=== PATIENT | female | born 1965 | race Caucasian/White ===

== ENCOUNTER → 2016-12-09 | Outpatient (CLI) | payer BC ==
[~2016-12-09] MED LIST: CIPR1TAB11 PO
[2016-12-09 15:07] LABS: URINE APPEARANCE CLEAR (CLEAR); URINE BILIRUBIN NEG (NEG); URINE COLOR YELLOW; URINE NITRITE NEG (NEG); URINE PH 6.5 (4.5-7.5); URINE SPECIFIC GRAVITY 1.012 (1.000-1.030); UROBILINOGEN NEG (NEG)
[2016-12-09 15:09] LABS: MANUAL MICROSCOPIC REQUIRED? NO; REVIEW REQ? NO
== END | disposition home or self-care (01) ==
LOC: C.LABSPEC 13:43
PROVIDERS: ATTEND Obstetrics & Gynecology
DX: R39.15 Urgency of urination (principal)

== ENCOUNTER → 2017-04-26 | Outpatient (CLI) | payer BC ==
--- NOTE | 2017-04-27 14:07 | MAMMOGRAPHY REPORT ---
BILATERAL DIGITAL DIAGNOSTIC MAMMOGRAM TOMOSYNTHESIS WITH CAD AND TARGETED RIGHT ULTRASOUND: 7 CLINICAL HISTORY: 52-year-old woman presented for screening mammography but also had a new symptom of right-sided clear nipple discharge. Multiple episodes occurring over multiple months. No palpable lumps, skin erythema or focal pain. TECHNIQUE: Bilateral breast tomosynthesis in addition to standard 2D mammography was performed. Spot magnification right CC and ML views were performed in the anterior subareolar breast to evaluate for the nipple discharge. Current study was also evaluated with a Computer Aided Detection (CAD) system . COMPARISON: Comparison is made to exams dated: 04/15/2015 mammogram, 04/20/2016 mammogram, 02/06/2014 ma mmogram, 12/26/2012 mammogram, 11/18/2011 mammogram, and 11/17/2010 mammogram - [facility]. BREAST COMPOSITION: The tissue of both breasts is almost entirely fatty. FINDINGS: There are grouped benign-appearing calcifications and benign oil cysts in the anterior supe rior left breast. No other suspicious mass, architectural distortion or cluster of microcalcification s is seen. The spot magnification views of the right anterior breast failed to demonstrate any new suspicious mi crocalcifications or obvious new mass. Further evaluation with ultrasound was performed. Targeted ultrasound was performed in the retroareolar and periareolar right breast. In the approxima te 6:00 through retroareolar and 1:00 axis, there is an oval isoechoic mass within a mildly ectatic d uct. The hypoechoic to isoechoic mass measures approximately 8.2 x 2.2 x 5.0 mm. This could explain the patient's nipple discharge and this could represent an intraductal mass such as a papilloma or D CIS. It could also represent intraductal debris. Definitive characterization with an ultrasound-mehran ded core needle biopsy is recommended. IMPRESSION: ACR BI-RADS CATEGORY 4: SUSPICIOUS, TARGETED ULTRASOUND ACR BI-RADS CATEGORY 4: SUSPICIO US 1. Ultrasound guided core biopsy is recommended for a possible intraductal mass measuring 8 x 2 mm i n the 6:00 periareolar/subareolar right breast, which may explain the patient's symptom of right-side d nipple discharge. 2. Otherwise stable mammographic appearance of the breasts, without mammographic evidence of maligna ncy. These results and recommendations were discussed with the patient at the time of the exam. She would like to discuss these findings and her options with her provider prior to making a follow-up appoint ment. Approximately 10% of breast cancers are not detected with mammography. A negative mammographic report should not delay biopsy if a clinically suggestive mass is present. Nelida Salazar M.D. ay/:04/26/2017 15:14:43 Administrative Supervisor: Selin Shelley, [facility] letter sent: Abnormal 4/5 BI-RADS Code: ACR BI-RADS Category 4: Suspicious Ultrasound BI-RADS: ACR BI-RADS Category 4: Suspici ous
== END | disposition home or self-care (01) ==
LOC: C.MAMM 13:58
PROVIDERS: ATTEND Obstetrics & Gynecology
DX: N64.4 Mastodynia (principal); N64.52 Nipple discharge

== ENCOUNTER → 2017-05-16 | Outpatient (CLI) | payer BC ==
--- NOTE | 2017-05-16 12:04 | Discharge Instructions ---
Discharge Instructions Procedure Procedure Date: May 16, 2017. Reason for visit: Right Breast Mass. Discharge Discharge Date: May 16, 2017. Discharge Diagnosis: post right breast ultrasound guided core biopsy Instructions Activity Recommendations: Additional Limitations (see below) Return to School/Work: no limitations Recommended Home Diet: No Limitations Provider Instructions: ACTIVITY RECOMMENDATIONS: * No lifting, pushing, pulling or exercising the affected side for three days. RETURN TO SCHOOL/WORK: * You may return to work/school after the procedure, but do not perform any strenuous activities for 24 to 48 hours. MEDICATIONS: * Tylenol (two 325 mg) every four to six hours if needed for mild pain (if not allergic to Tylenol). DIET: * Resume previous diet. SPECIAL CARE INSTRUCTIONS: * Keep biopsy site dry for 24 hours. May shower after 24 hours, but do not soak (bathe) incision. * May remove Tegaderm (plastic patch) tomorrow AFTER showering. * Leave the steri-strips on for one week. Allow the steri-strips to fall off by themselves. If not off after one week, you may remove them. You may place a Bandaid crosswise over the strips, if desired. * Apply ice 10 minutes on and 10 minutes off as needed. * Wear a bra at bedtime to sleep more comfortably for 2-3 days. * Your referring physician should have the results after approximately 5 to 7 business days. * Call for unusual bleeding, fever, drainage, etc or if you have any questions call [phone] during normal business hours or after hours call Dr Salazar, . FOLLOW UP VISIT: Follow-up with Referring Physician as scheduled. Allergies Coded Allergies: Nickel (Unverified Allergy, Unknown, BLISTERLIKE RASH FROM JEWELRY, ) Sulfa Antibiotics (Unverified Allergy, Unknown, FULL BODY RASH, 03/04/16) Tu Small Recommendations: Call your doctor if: * Temperature above 101 degrees * Pain not relieved by pain medicine ordered * There is increased drainage or redness from any incision * You have any unanswered questions or concerns. Your Doctors Instructions noted above were prepared by provider Nelida Salazar. Patient Signature Section: Patient Instructions Signature Page Reba Kayy Patient (or Guardian) Signature/Date: I have read and understand the instructions given to me by my caregivers. Caregiver/RN/Doctor Signature/Date: The above-named patient and/or guardian has received patient instructions on this date. + Original Patient Signature Page (only) stays with chart. Please make copy for patient.
--- NOTE | 2017-05-16 12:38 | MAMMOGRAPHY REPORT ---
UNILATERAL RIGHT DIGITAL DIAGNOSTIC MAMMOGRAM TOMOSYNTHESIS: 05/16/2017 CLINICAL HISTORY: Status post ultrasound guided core biopsy of a possible intraductal mass in the 6:0 0 retroareolar right breast. Patient has a clinical history of right-sided nipple discharge. Please refer to the report from right breast ultrasound guided core biopsy performed at the same time for full detail. IMPRESSION: POST PROCEDURE IMAGING FOR MARKER PLACEMENT Please refer to the report from right breast ultrasound guided core biopsy performed at the same time for full detail. Approximately 10% of breast cancers are not detected with mammography. A negative mammographic report should not delay biopsy if a clinically suggestive mass is present. Nelida Salazar M.D. ay/:05/16/2017 12:06:43 Mapping Pilot: Selin Shelley, [facility] BI-RADS Code: Post Procedure Imaging For Marker Placement
--- NOTE | 2017-05-16 16:43 | MAMMOGRAPHY REPORT ---
THIS REPORT HAS BEEN AMENDED. ULTRASOUND GUIDED BIOPSY RIGHT BREAST: 05/16/2017 CLINICAL HISTORY: Possible intraductal mass in the 6:00 retroareolar right breast. Patient presents for ultrasound-guided core biopsy. Patient has a clinical history of right-sided nipple discharge. COMPARISON: Comparison is made to exams dated: 04/26/2017 ultrasound, 04/26/2017 mammogram, 04/20/2016 mammogram, 04/15/2015 mammogram, 02/06/2014 mammogram, and 12/26/2012 mammogram - [facility] [address] [facility]. PATIENT CONSENT: The procedure, risks and benefits were discussed with the patient and informed conse nt was obtained both verbally and in writing. Specific risks to this procedure include: bleeding, in fection, puncture of adjacent structure, nontarget biopsy, sampling error, pain, metal allergy and me dication reaction. PROCEDURE DESCRIPTION: A time out was performed and the right breast was agreed as the site of biopsy . The skin was prepped and draped in the usual sterile fashion. The possible intraductal mass in the 6:00 retroareolar right breast was chosen as the target for biopsy. Subcutaneous and intraparenchymal 1% buffered lidocaine, without epinephrine, was administered as local anesthesia. A skin incision wa s made. Through the incision, 4 samples were taken with a 14 gauge Achieve biopsy device. A ribbon s haped metallic marker was placed at the biopsy site. Hemostasis was achieved after manual compression . The patient tolerated the procedure well and there was no immediate complication. The samples were sent to the pathology department in an appropriately labeled container. Postprocedure right CC and ML tomosynthesis images were obtained. There is a new ribbon-shaped metal lic biopsy marker in the subareolar/6:00 retroareolar right breast, at the site of the biopsied intra ductal mass. No significant postbiopsy hematoma is identified. IMPRESSION: ULTRASOUND GUIDED BIOPSY Status post ultrasound guided core biopsy of a possible intraductal mass in the 6:00 retroareolar rig ht breast, with ribbon-shaped biopsy marker clip placed at the site. The patient will receive notification of the biopsy results from her referring physician. Nelida Salazar M.D. ay/:05/16/2017 14:11:12 Treasury Manager: Selin Shelley, [facility] AMENDMENT: 05/18/2017 Nelida Salazar M.D. 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 The pathology results are concordant with the imaging appearance. This papilloma may explain the pat ient's right nipple discharge and therefore surgical consultation for possible excision is boone guadalupe
== END | disposition home or self-care (01) ==
LOC: C.MAMM 11:06
PROVIDERS: ATTEND Obstetrics & Gynecology
DX: N63 Unspecified lump in breast (principal); D24.1 Benign neoplasm of right breast

== ENCOUNTER → 2017-11-20 | Outpatient (CLI) | payer OTHER ==
--- NOTE | 2017-11-20 15:18 | MAMMOGRAPHY REPORT ---
UNILATERAL RIGHT DIGITAL DIAGNOSTIC MAMMOGRAM TOMOSYNTHESIS WITH CAD: 11/20/2017 CLINICAL HISTORY: 52-year-old woman with a personal history of right breast papilloma, symptomatic wi th nipple discharge status post ultrasound-guided core biopsy and subsequent excisional biopsy. Path ology from the excisional biopsy in the right subareolar breast yielded: "An intraductal papilloma, 0 .6 cm, biopsy site reaction. The papilloma appears to be completely excised", based in the microscop ic description. TECHNIQUE: Right breast tomosynthesis in addition to standard 2D mammography was performed. Current s nabeel was also evaluated with a Computer Aided Detection (CAD) system. COMPARISON: Comparison is made to exams dated: 05/16/2017 mammogram, 04/26/2017 ultrasound, 04/26/2017 m ammogram, 04/20/2016 mammogram, 04/15/2015 mammogram, and 02/06/2014 mammogram - [facility]. BREAST COMPOSITION: There are scattered areas of fibroglandular density in the right breast. FINDINGS: A biopsy marker clip is no longer identified in the subareolar right breast, which had been excised at the time of papilloma excision. (The patient reports she is no longer experiencing nippl e discharge.) There is stable nodular asymmetry in the lateral, middle one third of the right breast on the cc view, which appears similar dating back to at least 2007, therefore considered benign. No new suspicious mass, asymmetry, architectural distortion or suspicious microcalcifications identifie d. No focal skin thickening appreciated. IMPRESSION: ACR BI-RADS CATEGORY 2: BENIGN Expected post surgical changes in the right breast from a subareolar papilloma excision. There is no mammographic evidence of malignancy. Recommend return to annual screening mammography schedule, due in April 2018. These results and recommendations were discussed with the patient at the time of the exam. Approximately 10% of breast cancers are not detected with mammography. A negative mammographic report should not delay biopsy if a clinically suggestive mass is present. Nelida Salazar M.D. ay/:11/20/2017 10:03:43 Coater Associate: Caity Davis RT(R)(M), [facility] letter sent: Normal 1/2 BI-RADS Code: ACR BI-RADS Category 2: Benign
== END | disposition home or self-care (01) ==
LOC: C.MAMM 08:59
PROVIDERS: ATTEND Surgery
DX: D24.1 Benign neoplasm of right breast (principal); Z98.890 Other specified postprocedural states

== ENCOUNTER → 2018-04-10 | Outpatient (CLI) | payer OTHER ==
--- NOTE | 2018-04-10 10:06 | DIAGNOSTIC IMAGING REPORT ---
L SHOULDER MIN 2 VIEWS CLINICAL HISTORY: LEFT HUMERAL FX fracture COMPARISON: 03/13/2018 DISCUSSION: Potential early interval healing of a comminuted fracture left humeral head and neck. No change in bony alignment. Developing callus summation. There is no evidence for soft tissue swelling. IMPRESSION: Comminuted fracture left humeral head and neck unchanged in configuration. Potential partial interval healing. The above report was generated using voice recognition software. It may contain grammatical, syntax or spelling errors. Electronically signed by: Florencio Miner M.D. 04/10/2018 10:04 AM Dictated Date/Time: 04/10/2018 10:03 AM
== END | disposition home or self-care (01) ==
LOC: C.RDSM 10:00
PROVIDERS: ATTEND Family Medicine
DX: S42.292A Other displaced fracture of upper end of left humerus, initial encounter for closed fracture (principal); X58.XXXA Exposure to other specified factors, initial encounter

== ENCOUNTER 2019-01-16 08:18 | Inpatient (IN) ==
--- NOTE | 2019-01-07 15:54 | PAT Medication Instructions ---
Medication Instructions Date of Service January 07, 2019 Home Medications celecoxib [Celebrex] 200 mg PO BID magnesium sulfate 300 mg PO QAM mirabegron [Myrbetriq] 25 mg PO QAM tramadol 50 mg PO TID PRN ASK your surgeon for instructions celecoxib [Celebrex] 200 mg PO BID DO NOT take the morning of surgery magnesium sulfate 300 mg PO QAM Take morning of surgery With a small sip of water, OTHERWISE NOTHING TO EAT OR DRINK AFTER MIDNIGHT: mirabegron [Myrbetriq] 25 mg PO QAM tramadol 50 mg PO TID PRN (okay to take up to 4 hours prior to surgery if needed) Take evening before surgery tramadol 50 mg PO TID PRN (if needed) Other Notes If you have any questions please call us at [phone] or [phone] or [phone] or [phone]
--- NOTE | 2019-01-08 12:17 | Anesthesiology Consultation ---
Date of Service January 08, 2019 Assessment & Plan (1) Encounter for pre-operative examination: Chart Review Chart Review: Acceptable Risk for Surgery and Patient seen in Pre Admission Testing Teaching & Discussion Pre-Anesthesia Teaching/Discussion Notes: Instructed NPO after midnight before surgery,except medications with 15 cc of water. Medication instructions provided according to the PAT guidelines. History Surgery Operation Date: 01/16/19 07:15 Proposed Procedures p Left Total Hip Replacement - Kraig Schwartz MD Height/Weight Height: 5 ft 11 in Weight: 131.6 kg Allergies Allergy/AdvReac Type Severity Reaction Status Date / Time nickel Allergy Mild BLISTERLIKE Verified 01/07/19 11:36 RASH FROM JEWELRY Sulfa (Sulfonamide Allergy Mild FULL BODY Verified 01/07/19 11:36 Antibiotics) RASH Additional Notes: Surgeon/OR made aware of nickel allergy* Medications Home Medications Medication Instructions Recorded Confirmed Last Taken celecoxib [Celebrex] 200 mg PO BID 01/07/19 01/07/19 Unknown magnesium sulfate 300 mg PO QAM 01/07/19 01/07/19 Unknown mirabegron [Myrbetriq] 25 mg PO QAM 01/07/19 01/07/19 Unknown tramadol 50 mg PO TID PRN 01/07/19 01/07/19 Unknown Past Medical History Medical History Chronic back pain Frequency of urination Migraine H/O Morbid obesity Osteoarthritis Sciatica LLE RADICULOPATHY Exercise / Class Metabolic Activity III < 4 Walking/Shop/Light housework Past Family History Family History Grandfather (Maternal) Family hx of colon cancer Past Surgical History Surgical History H/O hysterectomy with oophorectomy History of colonoscopy History of tonsillectomy History of tooth extraction Past Anesthesia History No Hx of Anesthesia Complications and No Family Hx of Anesthesia Complications History of PONV No Hx of PONV, No Family Hx of PONV, No Hx of Motion Sickness and Hx of Motion Sickness (OCCASIONAL) Social History Smoking Status: Never smoker Do You Dip or Chew Tobacco: No Hx Alcohol Use: Yes Alcohol type: wine alcohol intake frequency: a few times a month Hx Substance Use: No substance use type: does not use Review of Systems Patient denies chest pain, shortness of breath, cough, wheezing, palpitations. Physical Exam Vital Signs VITALS BP 125/82 P 81 TEMP 98.1 SP02 95%RA RESP 18 PHYSICAL Full neck and c-spine range of motion. Full TMJ range of motion. TMD 3.5 finger breaths Mallampati Score 3 Dentition: intact Lungs: clear throughout to auscultation Cardiac: regular rate and rhythm, I/ systolic murmur Spine: normal Carotid arteries: negative bruit Extremities: no edema Testing Electrocardiogram Date: 01/08/19 Findings: + NSR @ (72) Chest X-Ray Date: 01/08/19 Findings: + NAD Laboratory Results 01/08/19 12:32 01/08/19 12:32 Blood Type A Positive 01/08/19 12:32 Antibody Screen NEGATIVE 01/08/19 12:32 PT 10.5 Seconds (9.0-12.0) 01/08/19 12:32 INR 1.0 (0.9-1.1) 01/08/19 12:32 APTT 28.1 Seconds (21.0-31.0) 01/08/19 12:32
--- NOTE | 2019-01-08 13:07 | XRay Report ---
XR chest Pre-admission PA/Lat HISTORY: Preop. COMPARISON: None. FINDINGS: The lungs are clear. Cardiac silhouette is normal in size. No pleural effusions. No pneumot horax. IMPRESSION: No acute process. Electronically signed by: Valdemar Velásquez M.D. 01/08/2019 1:05 PM
[2019-01-08 14:16] LABS: Basophils # (auto) 0.04 K/uL (0-0.2); Basophils % (auto) 0.7 %; Eosinophils # (auto) 0.19 K/uL (0-0.5); Eosinophils % (auto) 3.1 %; Hematocrit (blood only) 40.6 % (37-47); Hemoglobin 13.8 g/dL (12.0-16.0); Immature Granulocytes # (auto) 0.01 K/uL (0.00-0.02); Immature Granulocytes % (auto) 0.2 %; Lymphocytes # (auto) 1.82 K/uL (1.2-3.4); Lymphocytes % (auto) 29.6 %; Mean Corpuscular Volume 83.5 fL (80-100); Mean Platelet Volume 10.2 fL (7.4-10.4); Monocytes # (auto) 0.37 K/uL (0.11-0.59); Neutrophils # (auto) 3.71 K/uL (1.4-6.5); Neutrophils % (auto) 60.4 %; Platelet Count 253 K/uL (130-400); RDW Coefficient of Variation 13.3 % (11.5-14.5); RDW Standard Deviation 39.7 fL (36.4-46.3); Red Blood Count 4.86 M/uL (4.2-5.4); White Blood Count 6.14 K/uL (4.8-10.8)
[2019-01-08 14:28] LABS: Partial Thromboplastin Time 28.1 Seconds (21.0-31.0); Prothrombin Time 10.5 Seconds (9.0-12.0)
[2019-01-08 14:56] LABS: BUN Creatinine Ratio 26.6 (10-20); C Reactive Protein 0.99 mg/dl (0-0.29); Calcium 9.4 mg/dl (8.5-10.1); Est GFR (African American) 114.9; Est GFR (Non-African American) 99.2; Potassium 4.2 mmol/L (3.5-5.1)
--- NOTE | 2019-01-09 14:36 | History and Physical Report ---
DATE OF ADMISSION: 01/16/2019 CHIEF COMPLAINT: Left hip pain. HISTORY OF PRESENT ILLNESS: This is a 53-year-old female who presents for surgical treatment of her left hip. She has about a year history of markedly increased left hip pain and discomfort that has gradually just gotten worse particularly over the past 6-9 months. No injury. [facility] quite some time, which has not been helping. [place] was [place] [facility] were [place] there. She has seen Dr. Verma as well as Dr. Miller with various injections. She did eventually see Dr. Zepeda. I would recommend she lose some weight. She has tried to do this, but having difficulty due to the fact that she is having trouble ambulating. She uses a cane to get around. She describes groin and thigh pain and buttock pain. She did have an intraarticular injection, which helped her for about 2 days. She has lost 35 pounds over the past 5 months. She continues to be bothered by disabling hip pain. She has nighttime pain. She had to quit her job due to her limited mobility. She now like to proceed with definitive treatment. PAST MEDICAL HISTORY: 1. Arthritis. 2. Obesity with BMI of 41 and a 35-pound weight loss for past several months. PAST SURGICAL HISTORY: Include: 1. Hysterectomy. 2. Tonsillectomy. 3. Biopsy. ALLERGIES: SULFA. ALSO REPORTS SOME ADVERSE REACTION TO NICKEL. CURRENT MEDICINES: Include: 1. Celebrex. 2. Tyrosine for metabolic weight loss. 3. Tramadol. SOCIAL HISTORY: A 53-year-old female. She is . Does not smoke. FAMILY HISTORY: Noncontributory. REVIEW OF HISTORY: Negative for diabetes, neurological problems, vascular problems, bleeding disorders. Denies any chest pain, no shortness of breath. No history of DVT or PE. No known bleeding problems. PHYSICAL EXAMINATION: GENERAL: Reveals a pleasant, middle-aged female, looks to be in reasonably good health. HEENT: Benign. NECK: Supple, no lymphadenopathy. LUNGS: Clear to auscultation. HEART: Has regular rate and rhythm. ABDOMEN: Soft, nontender, nondistended. EXTREMITIES: Grossly neurovascularly intact except as follows. Examination of left hip and leg reveals the patient walks with a markedly antalgic gait. She comes in using a cane. She is about 0.5 cm short on the left side compared to right. She has marked pain with any type of hip motion. She can internally rotate to neutral at best. External rotation at 20 degrees. Negative straight leg raise. X-RAYS: X-ray of left hip reviewed. She has advanced left hip DJD. She has got complete loss of her joint space with flattening of the femoral head and cystic change on both sides of the joint. She does have some subluxation of her femoral head and the acetabulum as well. ASSESSMENT: A 53-year-old female with a 1 year history of increasing left hip pain and discomfort consistent with advanced hip arthritis. She undoubtably has got some back disease, but I do not believe her hip is most disabling component of her pain pattern. PLAN: We talked about treatment. She would like to have her left hip fixed. We will take her to the Operating Room and do a left total hip replacement. The risks and benefits of this procedure were explained to the patient including but not limited to DVT, PE, , infection, neurological injury, vascular injury, bleeding problem, pain, limited range of motion, stiffness, failure to relieve symptoms, incomplete relief of symptoms, need for further surgery in the future, fracture, leg length inequality, nerve palsy, need for revision surgery. The patient understands and desires to proceed. Informed consent was obtained. I did explain to her with her increased size and BMI, she is at increased risk of infection. She is aware of that. She has tried to lose some weight and had some success over the past several months. As far as discharge plans, she is planning to be discharged to home using [facility]. DUE TO THIS NICKEL ALLERGY, we will make sure we use a titanium stem with a ceramic or articular ball. RITAD
[~2019-01-16 08:18] MED LIST changes: +ACETAMINOPHEN 500 MG TAB PO SCH; +BUPIVACAINE 0.5 % 5 MG/1 ML PF 10ML VIAL ONE; +CEFAZOLIN 3000MG 65 ML IV SCH; -CIPR1TAB11 PO; +FAMOTIDINE 20 MG TAB PO SCH; +GABAPENTIN 300 MG x 2 PO SCH; +LR 500ML BOLUS, THEN 15ML/HR IV SCH; +LR 60ML/HR IV SCH; +METOCLOPRAMIDE HCL 10 MG TABLET PO SCH; +SCOPOLAMINE 1.5 MG TDSY TD SCH; +TRANEXAMIC ACID 1,000 MG **IV Pre-op IV SCH
--- OUTSIDE RECORDS SUMMARY | 2019-01-16 08:23 | External Medical Summary | Continuity of Care Document ---
:1965 Author Name Nandini Stuart, Provider Address Unavailable Unavailable , Care Team Providers Name Role Phone Raissa Edmonds PA-C Unavailable [email or web address] Unavailable Unavailable Unavailable Unavailable Unavailable Problems Obesity (278.00) (E66.9) Osteoarthritis (715.90) (M19.90) Chronic low back pain (724.2) (M54.5) Back pain with sciatica (724.3) (M54.9) Non-smoker (V49.89) (Z78.9) Cough (786.2) (R05) Laryngopharyngeal reflux (478.79) (K21.9) Laryngeal candidiasis (112.89) (B37.89) Throat pain (784.1) (R07.0) Trouble swallowing (787.20) (R13.10) Overactive bladder (596.51) (N32.81) Skin symptoms (782.9) (R23.9) Plantar warts (078.12) (B07.0) Palpitations (785.1) (R00.2) Malaise (780.79) (R53.81) Generalized Dermatitis Due To Drugs And Medicines (693.0) Encounter for routine gynecological examination (V72.31) (Z0 1.419) Gilda infection (112.9) (B37.9) Allergies and Adverse Reactions predniSONE TABS (Allergy) Status: Denied Sulfa Drugs (Allergy) Reaction: Hives Medications traMADol HCl - 50 MG Oral Tablet; TAKE 1 TABLET 3 time s daily PRSAY Syed Start: 15-Aug-2018 Quantity: 30 Refills: 0 Celecoxib 200 MG Oral Capsule; Take 1 capsule twice daily Sade Avery Start: 20-Dec-2018 Quantity: 60 Refills: 3 Myrbetriq 25 MG Oral Tablet Extended Release 24 Hour; Take 1 tablet daily Sade Harper Start: 18-Dec-2018 Quantity: 30 Refills: 1 Procedures History of Hysterectomy Status: Complete d History of Tonsillectomy Status: Complet ed History of Salpingectomy Unilateral Left Side Status: Completed History of breast biopsy core needle Sta tus: Completed History of breast biopsy excisional Stat us: Completed Immunizations Immunizations not documented Family History Father Family history of Lung Cancer (V16.1) Status: Active Family history of deafness or hearing loss (V19.2) (Z82.2) S tatus: Active Family history of asthma (V17.5) (Z82.5) Status: Active Mother Family history of Hypertension (V17.49) Status: Active Family history of Sinus disorder (473.9) (J34.9) Status: Act meryl Grandmother Family history of cardiac disorder (V17.49) (Z82.49) Status: Active aunt Family history of cerebrovascular accident (CVA) (V17.1) (Z8 2.3) Status: Active Plan of Treatment Planned Encounters Appointment; Ct Harper M.D. Start: 19-Mar-2019 15:45 Request Planned Observations Planned Goals not documented Results X-Ray Chest Preadm Testing Laboratory: [facility] Diagnostic (Pending) Imaging [address] [facility] 08-Jan-2019 13:04 X-Ray Chest Preadm Testing (CXRPRE) [place], [place] [phone] XRay Report Patient: ZECHARIAH HERNANDEZ Admit Date: MR#: [id number] Address1: [address] [place] [address] Acct ID:[id number] Address2: Date: 1965 [facility] Zip: [place] [address] Age: 53 Location: ASU Sex: F Room/Bed: Att Phy: Kraig Schwartz MD Diagnosis: LEF T HIP DEGENERATIVE JOINT DISEASE Carina Phy: Ct Harper MD Service Date: 0 01/08/19 Fam Phy: Interpreting Phy: Valdemar noel MD Admit Phy: Ordering Phy: Kraig Schwartz MD cc: XR chest Pre-admission PA/Lat HISTORY: Preop. COMPARISON: None. FINDINGS: The lungs are clear. Cardiac silhouette is normal in size. No pleural effusions. No pneumothorax. IMPRESSION: No acute process. Electronically signed by: Valdemar Velásquez M.D. 01/08/2019 1:05 PM Dictated: 01/08/19 1304 Transcribed: 01/08/19 1304 CBC With DIFF (Pending) Laboratory: [facility] Laboratory [address] [facility] [address] tel: 08-Jan-2019 12:32 WBC 6.14 K/uL Range: 4.8-10.8 K/u L RBC 4.86 {M/uL} Range: 4.2-5.4 M/uL HEMOGLOBIN 13.8 g/dL Range: 12.0-16.0 g /dL HEMATOCRIT 40.6 % Range: 37-47 % MCV 83.5 fL Range: 80-100 fL MCH 28.4 pg Range: 25-34 pg MEAN CORPUSCULAR HGB CONC Range: 32-36 g/dL 34.0 g/dL RED CELL DISTRIBUTION WIDTH Range: 36.4 -46.3 fL SD 39.7 fL RED CELL DISTRIBUTION WIDTH Range: 11.5 -14.5 % CV 13.3 % PLATELET COUNT 253 K/uL Range: 130-400 K/uL MEAN PLATELET VOLUME 10.2 fL Range: 7.4 -10.4 fL NEUT % 60.4 % Range: % LYMPH % 29.6 % Range: % MONO % 6.0 % Range: % EOS % 3.1 % Range: % BASO % 0.7 % Range: % IG% 0.2 % Range: % Comments: IG paramet er reflects the combination of Metas, Myelos andPromyelocytes. Neutrophils (Auto) 3.71 K/uL Range: 1. 4-6.5 K/uL LYMPH ABS # 1.82 K/uL Range: 1.2-3.4 K/ uL MONO ABS # 0.37 K/uL Range: 0.11-0.59 K /uL EOS ABS # 0.19 K/uL Range: 0-0.5 K/uL BASO ABS # 0.04 K/uL Range: 0-0.2 K/uL IG# 0.01 K/uL Range: 0.00-0.02 K/ uL Erythrocyte Sedimentation Laboratory: [facility] Laboratory Rate - ESR (Pending) [address] [place] [address] tel: 08-Jan-2019 12:32 ERYTHROCYTE SEDIMENTATION Range: 0-21 m m/hr RATE 16 {mm/hr} PT/INR (Pending) Laboratory: [facility] Laboratory [address] [place] [address] tel: 08-Jan-2019 12:32 Prothrombin Time 10.5 Range: 9.0-12.0 S econds {Seconds} INR 1.0 Range: 0.9-1.1 PTT (Pending) Laboratory: [facility] Laboratory [address] [place] [address] tel: 08-Jan-2019 12:32 PTT PATIENT 28.1 {Seconds} Range: 21.0- 31.0 Seconds Comments: Therapeuti c APTT range is 46.0 - 66.4 seconds PARTIAL THROMBOPLASTIN RATIO 1.0 Basic Metabolic Panel Laboratory: [facility] Laboratory (Pending) [address] [place] [address] tel: 08-Jan-2019 12:32 SODIUM 136 mmol/L Range: 136-145 mmol /L POTASSIUM 4.2 mmol/L Range: 3.5-5.1 mmo l/L CHLORIDE 104 mmol/L Range: 98-107 mmol/ L CARBON DIOXIDE 29 mmol/L Range: 21-32 m mol/L ANION GAP 3.0 Range: 3-11 BLOOD UREA NITROGEN 18 mg/dl Range: 7-1 8 mg/dl CREATININE 0.68 mg/dl Range: 0.6-1.2 mg /dl Estimated Creatinine Range: ml/min Clearance 142.0 ml/min Comments: Est. Cr eatinine Clearance (Mod Cockcroft- Gault) for pharmacydosing purposes. Estimated GFR ( Comments: Units: ml/min per Bhutanese) 114.9 1.73 meters squaredT he estimated GFR (CKD-E PI equation) has not be en validatedfor inpatie nt settings and may not be an accurate reflectiono f renal function in critical ly ill patients or those withrapidly changing renal function (e.g. KIM). Estimated GFR (Non- Comments: Uni ts: ml/min per Bhutanese) 99.2 1.73 meters squaredT he estimated GFR (CKD-E PI equation) has not be en validatedfor inpatie nt settings and may not be an accurate reflectiono f renal function in critical ly ill patients or those withrapidly changing renal function (e.g. KIM). BUN/CREATININE RATIO 26.6 Range: 10-20 (above high threshold) GLUCOSE 90 mg/dl Range: 70-99 mg/dl CALCIUM 9.4 mg/dl Range: 8.5-10.1 mg/ dl C-Reactive Protein (Pending) Laboratory: [facility] Laboratory [address] [place] [place] [address] tel: 08-Jan-2019 12:32 C-REACTIVE PROTEIN 0.99 mg/dl Range: 0- 0.29 mg/dl (above high threshold) Vital Signs 14-Jan-2019 13:08 Systolic 132 mm[Hg] Diastolic 78 mm[Hg] BMI Calculated 42.53 kg/m2 Weight 288 lb Height 69 in BSA Calculated 2.41 m2 08-Jan-2019 16:03 Systolic 134 mm[Hg] Comments: Position: Sitting Diastolic 80 mm[Hg] Comments: Position: Sitting BMI Calculated 43 kg/m2 Weight 291.1875 lb BSA Calculated 2.42 m2 Heart Rate 80 /min 18-Dec-2018 15:04 Systolic 144 mm[Hg] Comments: Position: Standing Diastolic 80 mm[Hg] Comments: Position: Standing BMI Calculated 43.94 kg/m2 Weight 297.5625 lb BSA Calculated 2.45 m2 Heart Rate 88 /min 18-Dec-2018 15:03 Systolic 150 mm[Hg] Comments: Position: Sitting Diastolic 80 mm[Hg] Comments: Position: Sitting Encounters Appointment; Jina Menchaca DO 14-Jan-2019 13:15 Encounter Diagnosis: Problem not documented Appointment; Ct Harper M.D. 08-Jan-2019 15:30 Encounter Diagnosis: Problem not documented Appointment; Ct Harper M.D. 18-Dec-2018 14:45 Encounter Diagnosis: Problem not documented Appointment; Raissa Edmonds PA-C 20-Nov-2018 10:00 Encounter Diagnosis: Problem not documented Appointment; Raissa Edmonds PA-C 21-Sep-2018 9:00 Encounter Diagnosis: Problem not documented Appointment; Raissa Edmonds PA-C 08-Aug-2018 13:00 Encounter Diagnosis: Problem not documented Appointment; Vero Puga M.D. 15-Dec-2017 8:40 Encounter Diagnosis: Problem not documented Appointment; Nelida Nettles PA-C 07-Jul-2017 14:15 Encounter Diagnosis: Problem not documented Appointment; Nohemi Zarate PA-C 10-Feb-2017 13:40 Encounter Diagnosis: Problem not documented Appointment; Nohemi Zarate PA-C 26-Jan-2017 9:40 Encounter Diagnosis: Problem not documented Appointment; Ct Harper M.D. 19-Mar-2019 15:45 Encounter Diagnosis: Problem not documented
--- NOTE | 2019-01-16 08:54 | History & Physical Bridge Note ---
Date of Service January 16, 2019 History & Physical Bridge Note I have examined the patient, reviewed the History & Physical and in the interval since the performance of the History & Physical I have noted the following changes of clinical significance: no changes noted
[2019-01-16] MEDS ORDERED: PROPOFOL IV EMULSION 10 MG/ML 20 ML VIAL IV ONE ×2 (09:34→11:15)
[2019-01-16] MEDS ORDERED: MIDAZOLAM HCL 1 MG/ML 2ML VIAL ONE ×3 (09:34→12:25)
[2019-01-16] MEDS ORDERED: LIDOCAINE HCL 2% 2 ML VIAL/AMP(20MG/ML) INFIL ONE (09:34)
[2019-01-16] MEDS ORDERED: MoRPHine SULFATE PF 1 MG/ML 10 ML AMP/VIAL ONE (09:35)
[2019-01-16] MEDS ORDERED: NALBUPHINE HCL INJ 10 MG/ML AMP IV PRN (10:29)
[2019-01-16] MEDS ORDERED: NALOXONE HCL 0.4 MG/1 ML VIAL/CARP IV PRN ×2 (10:29→14:16)
[2019-01-16] MEDS ORDERED: MoRPHine SULFATE PF 1 MG/ML 10 ML AMP/VIAL INT SPINAL ONE (10:29)
[2019-01-16] MEDS ORDERED: ONDANSETRON INJ 2 MG/ML 2 ML VIAL IV PRN (10:29)
[2019-01-16] MEDS ORDERED: MEPERIDINE HCL 25 MG/ML CARP IV PRN (10:29)
[2019-01-16] MEDS ORDERED: LACTATED RINGER'S 500 ML IV PRN (10:29)
[2019-01-16] MEDS ORDERED: KETOROLAC 30 MG/ML VIAL IV PRN (10:29)
[2019-01-16] MEDS ORDERED: MoRPHine SULFATE 2 MG/ML CARP IV PRN (10:29)
[2019-01-16] MEDS ORDERED: NALOXONE HCL 0.08 MG in SYRINGE 1.8 ML IV PRN (10:29)
[2019-01-16] MEDS ORDERED: PROMETHAZINE HCL 25 MG in SODIUM CHLORIDE 0.9% 50 ML IV PRN (10:29)
[2019-01-16] MEDS ORDERED: ePHEDrine sulfate 50 MG/ML AMP IV PRN (10:29)
[2019-01-16] MEDS ORDERED: HYDROmorphone INJ 0.5 MG/0.5 ML SYR IV PRN (10:29)
[2019-01-16] MEDS ORDERED: NALOXONE HCL 1 MG in SODIUM CHLORIDE 0.9% 1000ML 1,000 ML IV PRN (10:29)
[2019-01-16] MEDS ORDERED: DiphenhydrAMINE HCL 50 MG/ML VIAL IV PRN (10:29)
[2019-01-16] MEDS ORDERED: DC INTRASPINAL MORPHINE SCH (10:30)
[2019-01-16] MEDS ORDERED: NO NARCOTICS OR SEDATIVES SCH (10:30)
[2019-01-16] MEDS ORDERED: SODIUM CHLORIDE 0.9% 1000ML 1,000 ML IV SCH (10:30)
[2019-01-16] MEDS ORDERED: BACITRACIN INJ 50,000 UNIT VIAL ONE (10:46)
[2019-01-16] MEDS ORDERED: BUPIVACAINE/EPINEPHRINE 0.5% MPF 1:200,000 30 ML VIAL ONE (10:46)
[2019-01-16] MEDS ORDERED: PHENYLEPHRINE 100MCG/ML 5ML SYR ONE (11:40)
--- NOTE | 2019-01-16 12:58 | Post Operative Brief Note ---
Immediate Post Op Note v1 Date of Surgery January 16, 2019 Pre & Post Diagnosis Operation Date: 01/16/19 10:40 Pre-Op Diagnosis: Left Hip Advanced Degenerative Joint Disease Post-Op Diagnosis: Left Hip Advanced Degenerative Joint Disease Procedure Operation Date: 01/16/19 10:40 Actual Procedures p Left Total Hip Arthroplasty,Uncemented(Left) - Kraig Schwartz MD Surgeon Kraig Schwartz MD Assistant Project Engineer Kd, PAC Estimated Blood Loss 400 Findings Consistent with Post-Op Diagnosis Fluids 1700 cc Specimens Left Femoral Head Drains Garrison Catheter (A 16 Micronesian garrison catheter was inserted by GUSTAVO Wadsworth, without difficulty, clear yellow urine obtained, output to be montiored by Anesthesia.) Anesthesia Type Spinal MAC Complications none Disposition Accompanied Patient To Recovery: Yes Disposition: Recovery Room
--- NOTE | 2019-01-16 13:26 | XRay Report ---
XR hip 1V LT w pelvis CLINICAL HISTORY: IN PACU - A/P PELVIS and LATERAL HIP COMPARISON: None. DISCUSSION: Anatomic alignment post total left hip arthroplasty. Good contact between the metallic pr osthetic and underlying bone. Expected soft tissue postoperative change IMPRESSION: Anatomic alignment post total left hip prosthetic The above report was generated using voice recognition software. It may contain grammatical, syntax or spelling errors. Electronically signed by: Florencio Miner M.D. 01/16/2019 1:25 PM
[2019-01-16] MEDS ORDERED: BISACODYL 10 MG SUPP PR PRN (14:16)
[2019-01-16] MEDS ORDERED: MAGNESIUM HYDROXIDE SUSP 30 ML UDC PO PRN (14:16)
--- NOTE | 2019-01-16 14:33 | Anesthesiology Progress Note ---
Date of Service January 16, 2019 Anesthesia Post Procedure Vital Signs Vital Signs: Temp Pulse Pulse Resp BP Pulse Ox 01/16/19 14:26 36.6 C 68 20 104/65 100 01/16/19 13:45 75 14 111/59 L 99 01/16/19 13:30 68 14 117/60 99 01/16/19 13:15 36.4 C L 79 13 122/59 L 95 01/16/19 13:05 79 20 133/59 L 100 01/16/19 12:59 36.2 C L 85 17 122/74 98 01/16/19 08:57 36.9 C 88 18 174/90 H 97 Pain Intensity Left Hip: Pain Intensity: 4 Transfer of Care Handoff Completed per policy Notes Mental Status: alert / awake / arousable and participated in evaluation Patient Amnestic to Procedure: Yes Nausea / Vomiting: adequately controlled Pain: adequately controlled Airway Patency, RR, SpO2: stable & adequate BP & HR: stable & adequate Hydration State: stable & adequate Anesthetic Complications: no major complications apparent
[2019-01-16] MEDS: ACETAMINOPHEN 500 MG TAB PO SCH ×2 (15:22→21:08)
[2019-01-16] MEDS: KETOROLAC 30 MG/ML VIAL IV SCH ×2 (15:22→21:08)
[2019-01-16] MEDS: SODIUM CHLORIDE 0.9% 1000ML 1,000 ML IV SCH ×2 (15:22→23:57)
[2019-01-16] MEDS: CHECK SCOPOLAMINE PATCH PLACEMENT SCH ×2 (15:23→23:51)
--- NOTE | 2019-01-16 16:17 | Progress Note ---
DATE: 01/16/2019 SUBJECTIVE: A 53-year-old female postop from a left total hip replacement. She is doing well. Just starting to have some pain in her leg. No chest pain or shortness of breath. Not feeling dizzy or lightheaded. OBJECTIVE: VITAL SIGNS: Temperature 36.4. Vital signs stable. GENERAL: Physical examination shows a pleasant, middle-aged female. She is sitting up in her bed and talking to her , looks pretty comfortable. LUNGS: Clear to auscultation. HEART: Regular rate and rhythm. ABDOMEN: Soft, nontender, nondistended. EXTREMITIES: Grossly neurovascularly intact except as follows: Examination of the left lower extremity reveals the leg to be well aligned. Leg lengths are equal. Hip appears located. She can dorsiflex and plantarflex her foot appropriately. She is neurologically intact. X-RAYS: X-rays of the left hip from recovery room reviewed. It shows a left uncemented total hip arthroplasty. Components looked to be in good position. No signs of problems. ASSESSMENT: A 53-year-old female postop from a left hip replacement, doing well. Her pain is controlled. Her hip is located. She is neurologically intact. PLAN: 1. DVT prophylaxis including thigh-high TEDs, SCDs, and aspirin twice a day. 2. PT/OT. Weight bear as tolerated. Left total hip protocol. 3. Pain control, doing pretty well with current pain regimen. We have to adjust her meds as the spinal wears off. 4. IV antibiotics x24 hours. 5. Disposition: Plan to discharge to home with some home health once medically stable and recovered.
[2019-01-16] MEDS: ASCORBIC ACID 500 MG TAB PO SCH (18:02)
[2019-01-16] MEDS: FERROUS GLUCONATE 324 MG TAB PO SCH (18:02)
[2019-01-16] MEDS ORDERED: TRANEXAMIC ACID 1,000 MG in 0.9 % SODIUM CHLORIDE 100 ML IV SCH (19:00)
[2019-01-16] MEDS: CEFAZOLIN 2000MG 2,000 MG/15 ML SYR IV SCH (19:39)
[2019-01-16] MEDS: ASPIRIN 81 MG ECTAB PO SCH (21:08)
[2019-01-16] MEDS: DOCUSATE SODIUM 100 MG CAP PO SCH (21:08)
[2019-01-16] MEDS: SENNA 8.6 MG TAB PO SCH (21:08)
--- NOTE | 2019-01-16 22:32 | Operative Report ---
DATE OF OPERATION: 01/16/2019 SURGEON: Kraig Schwartz MD DELIVERY NURSE: GUSTAVO Swenson PREOPERATIVE DIAGNOSIS: Left hip degenerative joint disease. POSTOPERATIVE DIAGNOSIS: Left hip degenerative joint disease. PROCEDURE PERFORMED: Left uncemented ceramic on highly cross-linked polyethylene total hip arthroplasty. COMPLICATIONS: None. ESTIMATED BLOOD LOSS: 400 mL. FLUID REPLACEMENT: 1700 mL crystalloid fluid replacement. ANESTHESIA: Spinal. DRAINS: None. SPECIMENS: Left femoral head sent for pathology. OPERATIVE INDICATIONS: The patient is a 53-year-old female who has had a several year history of increasing left pain and discomfort that has gotten markedly worse over the past year. She has been through extensive conservative treatment including pain clinic as well as spine injections without much relief and progressive pain. X-rays eventually showed markedly progressed left hip arthritis. She elected to proceed with total hip arthroplasty. She is in the point that she was asked to use a cane to get around. OPERATIVE FINDINGS: Operative findings were advanced left hip DJD. She had a very dysplastic acetabulum with a large medial osteophyte and sclerosis and a very deficient superior and posterior wall. She had grade 4 extensive disease. OPERATIVE IMPLANTS: Operative implants consisted of: 1. Biomet G7 size 56 mm acetabular shell. 2. An apex hole eliminator. 3. A 6.5 cancellous acetabular screws, 1 at 35 mm length and 1 at 20 mm length. 4. Highly cross-linked polyethylene liner with a 56 mm outer diameter, 36 mm inner diameter with a vigil placed inferior and posterior. 5. DePuy Corail size 12 KLA femoral stem. 6. The +8.5/36 mm ceramic articular ball. OPERATIVE PROCEDURE: The patient taken to the operating room, identified and placed on the operative table in supine position. All contact areas were appropriately padded. IV antibiotics were provided by the anesthesia team. Spinal anesthetic was implemented in the holding area. Escalona catheter was placed in sterile fashion. The patient was then placed in the right lateral decubitus position. We took extra time positioning her due to her very large size. [facility] hip positioner was used for positioning. All contact areas were meticulously padded. Left hip and leg were then prepped and draped in usual sterile fashion. A posterolateral approach of the left hip was then performed through a curvilinear incision centered over the greater trochanter. Sharp dissection was carried out through the subcutaneous tissue down to the level of the IT band and gluteal fascia. The subcutaneous tissue envelope was quite thick. The IT band and gluteal fascia was incised longitudinally in line with skin incision. The greater trochanteric bursa was excised. The piriformis and external rotators and the posterior capsule were released from the posterior aspect of the hip joint as a single layer. Great care was taken throughout the procedure to protect the sciatic nerve at all times. Hip was internally rotated and dislocated. The femoral neck osteotomy cut was made with the final cut about 12 mm above the lesser trochanter. Femoral head was removed and sent for pathology. The femur was retracted anteriorly. Attention was then drawn to the acetabulum. The acetabular labrum was excised. There was no pulvinar fat. I did find the marking of the acetabulum. I then reamed centrally and then I reamed for position. I began reaming at a 47 and progressed up to 55. A 56 mm Biomet G7 acetabular shell was then placed in about 40 degrees of lateral opening and 20 degrees of anteversion. It did take quite the reaming to do this. It was then fixed with two 6.5 cancellous acetabular screws. A trial liner was placed. Attention was then drawn to the femur. The proximal femur entered with cookie cutter followed by canal finder. I then broached beginning with a size 8 and progressed up to a size 12. We got excellent fit at 12. The calcar reamer was used to smoothen off the calcar. I then trialed the hip. There was quite a bit of laxity due to the medialization of the acetabulum, so I ended placing the +8.5 neck length head. At this point, I had full stability and full extension and external rotation, flexion to 90 degrees, internal rotation to [address] a vigil inferior and posterior to maximize her stability in flexion due to her obesity impingement and due to the soft tissue laxity due to the medialization of the cup. We elected to place these implants. All trial implants were removed. An apex hole eliminator was placed. A highly cross-linked polyethylene liner with a vigil placed inferior and posterior was placed. A DePuy Corail size 12 KLA femoral stem was impacted in position. A +8.5/36 mm ceramic articular ball was placed. Hip was located and once again found to be stable. Attention was then drawn toward closing. The posterior capsule and external rotators were repaired through drill holes in the posterior trochanter with #2 Ti-Cron suture. I did inject locally with 60 mL of 0.5% Marcaine with epinephrine. I irrigated the wound extensively. The IT band and gluteal fascia were then closed with #1 PDS suture in running fashion. The subcutaneous tissue then closed with 3 layers with 2 layers of #2 Vicryl suture in a buried interrupted fashion followed by 2-0 Dexon suture in a subcuticular fashion. The skin was then closed with skin zohaib. Leg was then cleaned, dried and a sterile dressing of Xeroform, 4 x 4's, sterile ABD pad and foam tape was applied. The patient then transferred to the recovery room in stable condition. The patient tolerated the procedure well with no complication. All needle and sponge counts were correct at the end of the operation. I attest to the content of the Intraoperative Record and any orders documented therein. Any exception s are noted below.
[2019-01-17] MEDS: KETOROLAC 30 MG/ML VIAL IV SCH ×4 (03:41→21:22)
[2019-01-17] MEDS: CEFAZOLIN 2000MG 2,000 MG/15 ML SYR IV SCH (03:41)
[2019-01-17] MEDS: ACETAMINOPHEN 500 MG TAB PO SCH ×3 (05:23→21:22)
[2019-01-17 06:14] LABS: Basophils # (auto) 0.03 K/uL (0-0.2); Basophils % (auto) 0.4 %; Eosinophils # (auto) 0.16 K/uL (0-0.5); Eosinophils % (auto) 2.1 %; Hematocrit (blood only) 31.9 % (37-47); Hemoglobin 10.9 g/dL (12.0-16.0); Immature Granulocytes # (auto) 0.01 K/uL (0.00-0.02); Immature Granulocytes % (auto) 0.1 %; Lymphocytes # (auto) 1.16 K/uL (1.2-3.4); Mean Corpuscular Hgb Conc 34.2 g/dL (32-36); Mean Corpuscular Volume 82.2 fL (80-100); Mean Platelet Volume 9.4 fL (7.4-10.4); Monocytes # (auto) 0.58 K/uL (0.11-0.59); Monocytes % (auto) 7.5 %; Neutrophils # (auto) 5.77 K/uL (1.4-6.5); Neutrophils % (auto) 74.9 %; Platelet Count 190 K/uL (130-400); RDW Coefficient of Variation 13.2 % (11.5-14.5); RDW Standard Deviation 39.9 fL (36.4-46.3); Red Blood Count 3.88 M/uL (4.2-5.4); White Blood Count 7.71 K/uL (4.8-10.8)
[2019-01-17 06:56] LABS: BUN Creatinine Ratio 29.3 (10-20); Calcium 8.2 mg/dl (8.5-10.1); Creatinine Clr Calc Pharmacy 188.9 ml/min; Est GFR (African American) 126.3; Potassium 3.8 mmol/L (3.5-5.1)
[2019-01-17] MEDS: OXYCODONE HCL IR 5 MG TAB (IMMEDIATE RELEASE) PO PRN ×4 (07:37→23:35)
[2019-01-17] MEDS: ONDANSETRON INJ 2 MG/ML 2 ML VIAL IV PRN ×2 (07:37→17:02)
--- NOTE | 2019-01-17 08:03 | Anesthesiology Progress Note ---
Date of Service January 17, 2019 Anesthesia Post Procedure Vital Signs Vital Signs: Temp Pulse Pulse Resp BP BP Pulse Ox 01/17/19 06:59 36.7 C 75 18 127/65 95 01/17/19 03:54 37.2 C 76 14 103/63 98 01/17/19 03:00 15 96 01/17/19 01:55 14 94 01/17/19 00:57 14 95 01/16/19 23:03 36.8 C 78 14 112/67 96 01/16/19 22:02 16 100 01/16/19 21:06 14 98 01/16/19 20:10 14 100 01/16/19 19:39 36.5 C 67 14 103/71 98 01/16/19 19:00 14 98 01/16/19 18:01 14 99 01/16/19 17:19 36.5 C 69 16 100/63 96 01/16/19 16:05 17 99 01/16/19 16:04 67 17 99/65 L 98 01/16/19 15:00 15 100 01/16/19 14:56 36.4 C L 78 17 112/76 100 01/16/19 14:26 36.6 C 68 20 104/65 100 01/16/19 14:00 36.4 C L 75 13 110/72 99 01/16/19 13:45 75 14 111/59 L 99 01/16/19 13:30 68 14 117/60 99 01/16/19 13:15 36.4 C L 79 13 122/59 L 95 01/16/19 13:05 79 20 133/59 L 100 01/16/19 12:59 36.2 C L 85 17 122/74 98 01/16/19 08:57 36.9 C 88 18 174/90 H 97 Pain Intensity Left Hip: Pain Intensity: 4 Notes Mental Status: alert / awake / arousable and participated in evaluation Patient Amnestic to Procedure: Yes Nausea / Vomiting: adequately controlled Pain: adequately controlled Airway Patency, RR, SpO2: stable & adequate BP & HR: stable & adequate Hydration State: stable & adequate Neuraxial Anesthesia: was administered and sensory block resolved Anesthetic Complications: no major complications apparent and Pt Satisfied with anesthetic care
--- NOTE | 2019-01-17 08:06 | Progress Note ---
DATE: 01/17/2019 SUBJECTIVE: Reba is a 53-year-old female now postop day 1 from left total hip replacement. She is up, ambulating this morning. She has a bit more pain today. No chest pain, shortness of breath. No other complaints. OBJECTIVE: Dressing is clean, dry and intact and once again she is out of bed, ambulating with a walker at this time. She is neurovascularly intact. ASSESSMENT: Postop day 1 from left total hip replacement. PLAN: 1. Continue DVT prophylaxis, LULÚ stockings and SCDs and aspirin b.i.d. 2. PT, OT, weightbearing as tolerated. Continue total hip precautions. 3. Continue current pain management. 4. Continue discharge planning likely for discharge home tomorrow.
[2019-01-17] MEDS ORDERED: MAGNESIUM SULFATE PO SCH (09:00)
[2019-01-17] MEDS: ASCORBIC ACID 500 MG TAB PO SCH ×2 (09:02→18:05)
[2019-01-17] MEDS: MIRABEGRON ER 25 MG TAB PO SCH (09:02)
[2019-01-17] MEDS: FERROUS GLUCONATE 324 MG TAB PO SCH ×2 (09:02→18:05)
[2019-01-17] MEDS: TAPENTADOL HCL ER 50 MG TABCR PO SCH ×2 (09:02→21:22)
[2019-01-17] MEDS: DOCUSATE SODIUM 100 MG CAP PO SCH ×2 (09:02→18:05)
[2019-01-17] MEDS: ASPIRIN 81 MG ECTAB PO SCH ×2 (09:02→21:22)
[2019-01-17] MEDS: MULTIVITAMIN TAB PO SCH (09:02)
[2019-01-17] MEDS: SENNA 8.6 MG TAB PO SCH (18:05)
[2019-01-17] MEDS: HYDROmorphone INJ 0.5 MG/0.5 ML SYR IV PRN (21:36)
[2019-01-18] MEDS: KETOROLAC 30 MG/ML VIAL IV SCH ×2 (05:23→10:25)
[2019-01-18] MEDS: ACETAMINOPHEN 500 MG TAB PO SCH ×3 (05:29→22:23)
[2019-01-18] MEDS: ALUMINUM/MAGNESIUM SUSP 30 ML UDC PO PRN ×2 (05:29→17:43)
[2019-01-18] MEDS: ONDANSETRON INJ 2 MG/ML 2 ML VIAL IV PRN ×2 (05:33→18:25)
[2019-01-18] MEDS: OXYCODONE HCL IR 5 MG TAB (IMMEDIATE RELEASE) PO PRN (06:49)
[2019-01-18] MEDS: HYDROmorphone INJ 0.5 MG/0.5 ML SYR IV PRN ×2 (07:42→22:08)
--- NOTE | 2019-01-18 08:27 | Progress Note ---
DATE: 01/18/2019 SUBJECTIVE: A 53-year-old female postop day 2 from a left uncemented total hip replacement. She is doing relatively well. Having some stomach discomfort this morning. Hip pain seems to be pretty well controlled. Denies any chest pain or shortness of breath. Not feeling dizzy or lightheaded. OBJECTIVE: VITAL SIGNS: Temperature 36.6. Vital signs stable. GENERAL: Physical examination shows a pleasant middle-aged female. She is sitting up in her bedside chair. She has her hand on her belly. ABDOMEN: Examination of the belly reveals fairly large soft tissue envelope. It does not appear tender. She does have pretty good bowel sounds. She has no rebound tenderness. EXTREMITIES: Examination of the left hip reveals the dressing to be clean, dry and intact. Leg lengths were equal. Hip is located. She is neurologically intact. ASSESSMENT: A 53-year-old female postop day 2 from a left hip replacement, doing okay. Having some GI discomfort of unclear etiology today. She is passing gas and has bowel sounds. No rebound tenderness, just uncomfortable. Hip pain seems to be reasonably well controlled. PLAN: 1. DVT prophylaxis including thigh-high TEDs, SCDs, and aspirin twice a day. 2. PT/OT. Weight bear as tolerated. Left total hip protocol. 3. Pain control, doing okay with current pain regimens. 4. Abdominal discomfort. We are going to hold her Toradol. We will give her a little bit of Zofran as needed for nausea. 5. Disposition: She is hoping to be discharged to home later today if doing okay.
[2019-01-18] MEDS: MULTIVITAMIN TAB PO SCH (10:22)
[2019-01-18] MEDS: ASCORBIC ACID 500 MG TAB PO SCH ×2 (10:22→18:16)
[2019-01-18] MEDS: FERROUS GLUCONATE 324 MG TAB PO SCH ×2 (10:22→18:16)
[2019-01-18] MEDS: ASPIRIN 81 MG ECTAB PO SCH ×2 (10:26→22:03)
[2019-01-18] MEDS: TAPENTADOL HCL ER 50 MG TABCR PO SCH ×2 (10:26→22:04)
[2019-01-18] MEDS: DOCUSATE SODIUM 100 MG CAP PO SCH ×2 (10:26→22:03)
[2019-01-18] MEDS: MIRABEGRON ER 25 MG TAB PO SCH (10:27)
[2019-01-18] MEDS ORDERED: TRAMADOL HCL 50 MG TABLET PO PRN (13:30)
[2019-01-18] MEDS: SIMETHICONE 80 MG CHEW PO PRN (15:20)
[2019-01-18] MEDS: METOCLOPRAMIDE HCL INJ 5 MG/ML 2 ML VIAL IV PRN ×2 (15:31→22:08)
[2019-01-18] MEDS: SENNA 8.6 MG TAB PO SCH (22:03)
[2019-01-19] MEDS: SIMETHICONE 80 MG CHEW PO PRN ×2 (00:31→08:56)
[2019-01-19] MEDS: ACETAMINOPHEN 500 MG TAB PO SCH ×2 (05:42→13:27)
--- NOTE | 2019-01-19 08:09 | Progress Note ---
DATE: 01/19/2019 SUBJECTIVE: A 53-year-old white female postop day 3 from a left hip replacement. She is doing okay, but still having quite a bit of abdominal discomfort for unclear reasons. She describes this mostly just as a cramping. She has had several bowel movements. She says she has been passing gas. No chest pain or shortness of breath. Not feeling dizzy or lightheaded. OBJECTIVE: VITAL SIGNS: Temperature 36.8. Vital signs stable. GENERAL: Physical examination shows a pleasant, middle-aged female. She is sitting up at her bedside with her legs dangling over the edge of the bed and looks reasonably comfortable. Does not look in a lot of pain. ABDOMEN: Examination of the abdomen reveals a fairly large soft abdomen. There is no guarding or rebound. No real tenderness to palpation. She has bowel sounds. EXTREMITIES: Examination of the left hip reveals the dressing to be clean, dry and intact. Fairly large soft tissue envelope. She is neurologically intact. ASSESSMENT: A 53-year-old white female postop day 3 from a left hip replacement, doing okay except for this abdominal pain. Etiology is unclear. She has had multiple different interventions without much relief. She does have bowel sounds and had several bowel movements. PLAN: 1. DVT prophylaxis including thigh-high TEDs, SCDs, and aspirin twice a day. 2. PT/OT. Weight bear as tolerated. Left total hip protocol. 3. Pain control. We backed off on a lot of the pain medicines due to her abdominal pain. We stopped the Toradol and she is going to just try and use Tylenol. 4. Abdominal discomfort. GI has been consulted. The consult is pending. 5. Disposition: She is planning to be discharged to home. We will wait and see what GI has to say whether we can send her home.
[2019-01-19 08:10] LABS: Hematocrit (blood only) 32.2 % (37-47); Hemoglobin 11.3 g/dL (12.0-16.0); Mean Corpuscular Hgb Conc 35.1 g/dL (32-36); Mean Corpuscular Volume 81.7 fL (80-100); Mean Platelet Volume 9.4 fL (7.4-10.4); Platelet Count 247 K/uL (130-400); RDW Standard Deviation 39.8 fL (36.4-46.3); Red Blood Count 3.94 M/uL (4.2-5.4); White Blood Count 10.23 K/uL (4.8-10.8)
[2019-01-19 08:38] LABS: BUN Creatinine Ratio 9.8 (10-20); Calcium 9.1 mg/dl (8.5-10.1); Creatinine Clr Calc Pharmacy 192.7 ml/min; Est GFR (African American) 127.2; Est GFR (Non-African American) 109.7; Potassium 3.5 mmol/L (3.5-5.1)
[2019-01-19] MEDS: DOCUSATE SODIUM 100 MG CAP PO SCH (08:52)
[2019-01-19] MEDS: MULTIVITAMIN TAB PO SCH (08:52)
[2019-01-19] MEDS: ASCORBIC ACID 500 MG TAB PO SCH (08:53)
[2019-01-19] MEDS: FERROUS GLUCONATE 324 MG TAB PO SCH (08:53)
[2019-01-19] MEDS: MIRABEGRON ER 25 MG TAB PO SCH (08:54)
[2019-01-19] MEDS: ASPIRIN 81 MG ECTAB PO SCH (08:54)
[2019-01-19] MEDS: TAPENTADOL HCL ER 50 MG TABCR PO SCH (08:55)
--- NOTE | 2019-01-19 13:07 | Gastrointestinal Consultation ---
Date of Consultation January 19, 2019 Assessment & Plan (1) Epigastric abdominal pain: 53 yo female who is s/p left hip surgery who developed post-operative nausea and abdominal pain. This has resolved and she is tolerating diet. having BMs. I suspect this was related to the anesthesia and pain medications she had been receiving. Would go ahead with discharge to home on tramadol. Discussed using pepcid/tums etc PRN. If pain returns we will be happy to see her in the GI clinic as an outpatient. (2) Nausea after anesthesia: History of Present Illness Reason for Consultation: abd pain post-op hip surgery Attending Physician: Kraig Schwartz MD History of Present Illness Mrs. Sultana is a 53 yo female admitted on 01/16 for left hip surgery which went well. Post-op she apparently developed nausea, a few episodes of vomiting and upper abdominal pain/pressure. This was particularly bad after getting pain medication per patient. Her pain medication was switched to non-narcotic yesterday and she has slowly had resolution of the pain. no further nausea. had 2-3 BM last evening. Tolerating diet. No pain pr nausea prior to surgery. Doing well from ortho standpoint and hoping to go home to see her daughter go to the [facility] later today. Allergies Allergy/AdvReac Type Severity Reaction Status Date / Time nickel Allergy Mild BLISTERLIKE Verified 01/16/19 08:38 RASH FROM JEWELRY Sulfa (Sulfonamide Allergy Mild FULL BODY Verified 01/16/19 08:38 Antibiotics) RASH Home Medications Home Medications Medication Instructions Recorded Confirmed Type Myrbetriq 25 mg PO QAM 01/07/19 01/16/19 History celecoxib [Celebrex] 200 mg PO BID 01/07/19 01/16/19 History magnesium sulfate 300 mg PO QAM 01/07/19 01/16/19 History tramadol 50 mg PO TID PRN 01/07/19 01/16/19 History acetaminophen [Tylenol Extra 1,000 mg PO Q8 30 Days #180 tab 01/17/19 Rx Strength] aspirin [Ecotrin Low Strength] 81 mg PO BID 45 Days #90 tab 01/17/19 Rx ferrous gluconate 324 mg PO BIDM 30 Days #60 tab 01/17/19 Rx oxycodone 5 - 10 mg PO Q4H PRN 15 Days #40 01/17/19 Rx tab ondansetron HCl [Zofran] 4 mg PO TID PRN #30 tab 01/18/19 Rx tramadol 50 mg PO Q4H PRN #40 tabs 01/19/19 Rx Patient History Family History Grandfather (Maternal) Family hx of colon cancer Social History Preferred Language: Japanese Communication Ability: Effective Validation Analyst Required: No Beliefs That Will Affect Care: None marital status: Current Living Situation: Spouse and Family Other Information That Helps Us Care for You: No Feels Safe at Home: Yes Safety Concerns: Feels Safe At This Time Smoking Status: Never smoker Do You Dip or Chew Tobacco: No Second Hand Exposure: No Tobacco Cessation Education Requested by Patient: No Hx Alcohol Use: Yes Alcohol type: wine Hx Substance Use: No Review of Systems Review of Systems: 12 systems reviewed and negative except as noted. Physical Exam Constitutional: WD/WN, vitals as above Respiratory: normal respiratory effort, lungs clear to auscultation Cardiovascular: RRR, no murmur, no edema Gastrointestinal (Abdomen): normal bowel sounds, soft, nontender, no hepatosplenomegaly Results & Data Vital Signs (Past 12 Hours) Vital Signs Temp Pulse Pulse Resp BP BP Pulse Ox 01/19/19 12:49 94 01/19/19 12:48 36.6 C 100 H 99 H 18 131/83 137/76 94 01/19/19 10:16 36.6 C 99 H 18 131/83 94 01/19/19 05:43 36.8 C 105 H 16 92
--- NOTE | 2019-01-23 14:46 | Discharge Summary ---
ADMITTING PHYSICIAN AND SURGEON: Dr. Kraig Schwartz. ADMITTING DIAGNOSIS: Left hip degenerative joint disease. SURGERY PERFORMED: Left total hip arthroplasty. SECONDARY DIAGNOSES: Arthritis, obesity, postoperative abdominal pain. CONSULTS: Dr. Kraft from GI service for abdominal pain. HISTORY AND PHYSICAL EXAMINATION: Well documented in the patient's chart. HOSPITAL COURSE: The patient was admitted on 01/16/2019 underwent total hip arthroplasty, tolerated the procedure well. There were no complications. She was transferred to the PACU postoperatively and later to the orthopedic floor for further care. She was given Ancef for antibiotic prophylaxis, LULÚ stockings, SCDs and aspirin for DVT prophylaxis. Hemoglobin, hematocrit and vital signs monitored during hospital stay and remained stable. She did not require any blood transfusions. There were no complications. She did have some nausea and some abdominal pain postoperatively. She was having bowel movements still. GI consult was placed. She was seen by the GI service who felt that her discomfort was likely related to anesthesia and some of the pain medications and recommended for discharge home with tramadol as well as using Pepcid or Tums as needed and follow up with GI clinic as needed. By postoperative day 3, she was tolerating a regular diet, pain was controlled with oral pain medicine. She was participating in physical therapy. On postop day 3, she was discharged home, set up with home health services. She was given printed discharge instructions including new prescriptions for extra strength Tylenol, aspirin, iron supplement, Zofran, oxycodone, tramadol. Continue her home medications, continue physical therapy, weightbearing as tolerated, LULÚ stockings, total hip precautions. Followup approximately 2 weeks postoperatively or sooner if there are any problems or concerns.
== END 2019-01-19 13:51 | disposition home health service (06) | DRG 470 ==
LOC: ASU 08:18 → 3E 13:03

== ENCOUNTER 2024-07-12 08:48 | Observation (INO) ==
--- NOTE | 2024-07-12 09:03 | Emergency Department Note ---
History of Present Illness General Chief complaint: Tachycardia Stated complaint: TACHYCARDIA Time Seen by Provider: 07/12/24 08:58 Source: patient, family ( who is at the bedside), RN notes reviewed and old records reviewed (11/24/21-primary care office note) Mode of arrival: ambulatory Limitations: no limitations History of Present Illness This patient is 59-year-old female comes in after having a rapid heart rate since Monday it has been in the 120s to 160s. She is on metoprolol 25 mg in the evening. She took an extra 12 and half the last 2 mornings. She says that she has no definite A-fib history but her refrigerating engineer head is concerned she could have A-fib as she does have these episodes intermittently but they never been captured in the hospital. She is on no blood thinners. No chest pain or shortness of breath.she says she is asymptomatic otherwise. No recent illness no fever chills no blood or melena in her stool. No lightheadedness or dizziness. She does have chronic diarrhea Home Medications Medication Instructions Recorded Confirmed Type cholecalciferol (vitamin D3) 50 2,000 unit PO QAM 03/10/21 07/12/24 History mcg (2,000 unit) capsule [id number] carb-vit K 2 tab PO QAM 04/29/21 07/12/24 History 18 mg iron-400 mcg-500 mg tablet (One-A-Day Womens Formula) famotidine 20 mg tablet (Pepcid) 20 mg PO BID PRN Heartburn 10/18/23 07/12/24 History metoprolol succinate 25 mg 25 mg PO HS 10/18/23 07/12/24 History tablet,extended release 24 hr diclofenac sodium 50 mg 50 mg PO DAILY PRN Pain 07/12/24 07/12/24 History tablet,delayed release Allergies Allergy/AdvReac Type Severity Reaction Status Date / Time Sulfa (Sulfonamide Allergy Severe FULL BODY Verified 07/12/24 10:01 Antibiotics) RASH nickel Allergy Mild BLISTERLIKE Verified 07/12/24 10:01 RASH FROM JEWELRY peanut Allergy Mild sore throat Verified 07/12/24 10:01 adhesive AdvReac Intermediate Rash Verified 07/12/24 10:01 duloxetine AdvReac Mild Nausea Verified 07/12/24 10:01 Past Med/Surg History Problem List (Updated 07/12/24 @ 16:32 by Ayden Don MD) Hypomagnesemia (Acute) Diarrhea (Acute) New onset a-fib (Acute) Atrial fibrillation with RVR (Acute) Tachycardia (Acute) GERD with esophagitis Insulin resistance Metabolic syndrome Primary hypertension Obesity, morbid, BMI 40.0-49.9 Obesity, morbid, BMI 50 or higher Obesity (BMI 30.0-34.9) Hyperlipidemia Nocturnal hypoxemia Insomnia (Chronic) Dietary counseling and surveillance Vitamin D deficiency Morbid obesity (Chronic) Bilateral leg edema Bilateral knee pain (Chronic) Elevated blood pressure reading without diagnosis of hypertension (Acute) Chronic low back pain (Chronic) Laryngopharyngeal reflux (Acute) Sciatica LLE RADICULOPATHY Left trigger finger no issues at present Right knee DJD Osteoarthritis Mild obstructive sleep apnea (Chronic) sleep study suggested mild apnea--no device per pt Arthralgia of multiple sites (Chronic) Medical History Insulin resistance not diabetic per pt Heart rate fast metoprolol for this per pt Hypertension GERD with esophagitis Chronic diarrhea Migraine Morbid obesity with BMI of 45.0-49.9, adult Metabolic syndrome Surgical History History of esophagogastroduodenoscopy (EGD) S/P myomectomy laparoscopic S/P laparoscopic sleeve gastrectomy 09/2021 PSH History of right breast biopsy benign History of dilatation and curettage History of wisdom tooth extraction History of left hip replacement H/O hysterectomy with oophorectomy TLH-LSO History of colonoscopy with polypectomy History of tooth extraction History of tonsillectomy Family History Grandfather (Maternal) Family hx of colon cancer Colorectal cancer Aunt Breast cancer Grandmother (Paternal) Myocardial infarction Mother Atrial fibrillation Hypertension Father Lung cancer Other COPD (chronic obstructive pulmonary disease) No family history of adverse response to anesthesia Denies family history of Ovarian cancer Prostate cancer Social History Smoking Status: Never smoker Second Hand Exposure: Yes; Do You Dip or Chew Tobacco: No; Tobacco Cessation Education Requested by Patient: No Hx Alcohol Use: Yes Alcohol type: wine and hard liquor Hx Substance Use: No Preferred Language: Citizen Of [place] Communication Ability: Effective Bone Density Technician Required: No Beliefs That Will Affect Care: None marital status: Current Living Situation: Spouse Current Living Situation Comment: Lives with and 2 kids current occupational status: employed current occupation: school psychology specialist at [employer] Other Information That Helps Us Care for You: No Feels Safe at Home: Yes Safety Concerns: Feels Safe At This Time Childhood Exposure to Second-Hand Smoke: Yes Dental Care, Regularly: Yes Physical Activity Frequency: 3-4 Times per Week Seatbelt Use: always Sunscreen Use: Yes Assistive Devices: Glasses Review of Systems A total of 10 systems reviewed and were otherwise negative Physical Exam Vital Signs Vital Signs - 24 hr 07/12/24 08:53 07/12/24 09:03 07/12/24 09:08 Temperature 36.5 C Temperature Source Oral Pulse Rate 110 H Pulse Rate from SpO2 Sensor Respiratory Rate 20 Respiratory Effort / Characteristics Non-Labored Spontaneous SOB on Exertion Respiratory Depth Normal Normal Respiratory Pattern Regular Blood Pressure 130/91 141/102 H Blood Pressure Mean 104 107 Blood Pressure Position Lying Pulse Oximetry 98 Oxygen Delivery Method Room Air Room Air Sepsis Recent Fever Within 48 Hours No Sepsis New/Unexplained Change in Mental Status No Sepsis Action Taken by Nursing No Action Required 07/12/24 09:12 07/12/24 09:16 07/12/24 09:19 Temperature Temperature Source Pulse Rate 139 H 128 H 140 H Pulse Rate from SpO2 Sensor Respiratory Rate 13 Respiratory Effort / Characteristics Respiratory Depth Respiratory Pattern Blood Pressure Blood Pressure Mean Blood Pressure Position Pulse Oximetry Oxygen Delivery Method Sepsis Recent Fever Within 48 Hours Sepsis New/Unexplained Change in Mental Status Sepsis Action Taken by Nursing 07/12/24 09:21 07/12/24 09:30 07/12/24 09:33 Temperature Temperature Source Pulse Rate 145 H 131 H Pulse Rate from SpO2 Sensor 108 H 125 H Respiratory Rate 16 13 Respiratory Effort / Characteristics Respiratory Depth Respiratory Pattern Blood Pressure 124/85 Blood Pressure Mean 107 Blood Pressure Position Pulse Oximetry 98 98 Oxygen Delivery Method Sepsis Recent Fever Within 48 Hours Sepsis New/Unexplained Change in Mental Status Sepsis Action Taken by Nursing 07/12/24 09:34 07/12/24 09:57 07/12/24 10:01 Temperature Temperature Source Pulse Rate 130 H 128 H Pulse Rate from SpO2 Sensor 112 H Respiratory Rate 15 Respiratory Effort / Characteristics Respiratory Depth Respiratory Pattern Blood Pressure 122/81 Blood Pressure Mean 94 Blood Pressure Position Pulse Oximetry 96 Oxygen Delivery Method Sepsis Recent Fever Within 48 Hours Sepsis New/Unexplained Change in Mental Status Sepsis Action Taken by Nursing 07/12/24 10:04 07/12/24 10:06 07/12/24 10:19 Temperature Temperature Source Pulse Rate 127 H 137 H 129 H Pulse Rate from SpO2 Sensor 129 H Respiratory Rate 16 Respiratory Effort / Characteristics Respiratory Depth Respiratory Pattern Blood Pressure Blood Pressure Mean Blood Pressure Position Pulse Oximetry 98 Oxygen Delivery Method Sepsis Recent Fever Within 48 Hours Sepsis New/Unexplained Change in Mental Status Sepsis Action Taken by Nursing General: Well developed well nourished in no acute distress, breathing comfortably on room air. Normal speech HEENT: Normal cephalic atraumatic. Pupils are equal round and reactive to light. Extraocular movements are intact. Oropharynx is pink with moist mucous membranes. No swelling of the mouth lips or tongue. Neck: Supple with a midline trachea. No meningeal signs or stiffness, no JVD or bruits. No Stridor. Chest: Clear to auscultation bilaterally. No wheezes or rhonchi. No increased work of breathing. Heart: Irregular regular and tachycardic without murmurs or gallops. On the surveillance monitor she does have rapid A-fib in the 130s Abdomen: Soft nontender, nondistended without rebound guarding or rigidity. Extremities: No cyanosis clubbing or edema. No calf tenderness or assymetry Spine/Back. Non tender to palpation. No CVA tenderness Skin: Good turgor without rashes. Neurologic exam: Cranial nerves two through 12 are intact. Motor and sensation are intact and symmetrical throughout. Course Administered Medications Diltiazem HCl 125 mg/ Dextrose 125 mls @ 5 mls/hr IV .Q24H [facility]; Protocol Stop: 08/11/24 13:14 Last Admin: 07/12/24 13:27 Dose: 5 mg/hr, 5 mls/hr Documented By: BALBIR Co-signed By: LEAH Titration: 07/12/24 13:27 Dose: Infused Documented By: BALBIR Co-signed By: LEAH Admin: 07/12/24 13:20 Dose: 5 mg/hr, 5 mls/hr Documented By: BALBIR Co-signed By: LEAH Discontinued Medications Apixaban (Apixaban 5 Mg Tablet) 5 mg PO ONE STA Stop: 07/12/24 11:10 Last Admin: 07/12/24 13:26 Dose: 5 mg Documented By: BALBIR Diltiazem HCl (Diltiazem Hcl 5 Mg/Ml 5 Ml Vial) 20 mg IV NOW STA Stop: 07/12/24 12:53 Last Admin: 07/12/24 13:15 Dose: 20 mg Documented By: BALBIR Co-signed By: CORNELIUS Sodium Chloride (Nss) 1,000 mls @ 999 mls/hr IV .Q1H1M ONE Stop: 07/12/24 10:12 Last Infusion: 07/12/24 10:44 Dose: Infused Documented By: Admin: 07/12/24 09:24 Dose: 999 mls/hr Documented By: DAVID Magnesium Sulfate/Dextrose (Magnesium Sulfate / D5w) 1 gm in 100 mls @ 50 mls/hr IV ONE ONE Stop: 07/12/24 12:13 Last Admin: 07/12/24 10:35 Dose: 50 mls/hr Documented By: DAVID Metoprolol Tartrate (Metoprolol Tartrate 1 Mg/Ml Vial) 5 mg IV NOW STA Stop: 07/12/24 09:13 Last Admin: 07/12/24 09:19 Dose: 5 mg Documented By: DAVID Metoprolol Tartrate (Metoprolol Tartrate 1 Mg/Ml Vial) 5 mg IV NOW STA Stop: 07/12/24 09:39 Last Admin: 07/12/24 10:04 Dose: 5 mg Documented By: DAVID Metoprolol Tartrate (Metoprolol Tartrate 25 Mg Tab) 25 mg PO ONE STA Stop: 07/12/24 10:24 Last Admin: 07/12/24 11:13 Dose: 25 mg Documented By: ARTHUR Metoprolol Tartrate (Metoprolol Tartrate 1 Mg/Ml Vial) 5 mg IV NOW STA Stop: 07/12/24 10:42 Last Admin: 07/12/24 11:13 Dose: 5 mg Documented By: ARTHUR Medical Decision Making Differential Diagnosis A-fib, arrhythmia, electrolyte or metabolic abnormality, thyroid disease, infection, acute coronary syndrome, pulmonary disease, vascular disease Medical Records Attestation: I reviewed the patient's medical records. Home Medications Current Medication List: was personally reviewed by or Laboratory Data Attestation: I reviewed the patient's lab results. 07/12/24 09:14 07/12/24 09:14 Lab Results 07/12/24 Range/Units 09:14 WBC 5.67 (4.8-10.8) K/ul RBC 4.78 (4.20-5.40) M/uL Hgb 14.0 (12.0-16.0) g/dl Hct 41.6 (37.0-47.0) % MCV 87.0 (80.0-100.0) fL MCH 29.3 (25.0-34.0) pg MCHC 33.7 (32.0-36.0) g/dL RDW Std Deviation 39.8 (36.4-46.3) fL RDW Coeff of Maria Luisa 12.5 (11.5-14.5) % Plt Count 256 (130-400) K/uL MPV 9.8 (9.4-12.4) fL Immature Gran % (Auto) 0.4 % Neut % (Auto) 57.0 % Lymph % (Auto) 30.9 % Stephenson % (Auto) 7.6 % Eos % (Auto) 3.0 % Baso % (Auto) 1.1 % Neut # (Auto) 3.24 (1.40-6.50) K/uL Lymph # (Auto) 1.75 (1.20-3.40) K/uL Stephenson # (Auto) 0.43 (0.11-0.59) K/uL Eos # (Auto) 0.17 (0.00-0.50) K/uL Baso # (Auto) 0.06 (0.00-0.20) K/uL Immature Gran # (Auto) 0.02 (0.01-0.20) K/uL PT 10.3 (9.0-12.0) Seconds INR 0.9 (0.9-1.1) APTT 26 (21-31) Seconds PTT Ratio 1.0 Sodium 140 (136-145) mmol/L Potassium 4.1 (3.5-5.1) mmol/L Chloride 106 (98-107) mmol/L Carbon Dioxide 29 (21-32) mmol/L Anion Gap 5 (3-11) BUN 14 (6-23) mg/dl Creatinine 0.72 (0.6-1.2) mg/dl Est Cr Clr Drug Dosing 122.3 ml/min eGFR 95.66 BUN/Creatinine Ratio 19.4 (10-20) Glucose 94 (70-99(Fasting)) mg/dl Calcium 9.2 (8.6-10.3) mg/dl Magnesium 1.8 (1.7-2.4) mg/dl Total Bilirubin 0.6 (0.2-1.0) mg/dl AST 17 (13-39) U/L ALT 18 (7-52) U/L Alkaline Phosphatase 68 (34-104) U/L Troponin I High Sens 5.7 (0-14) pg/ml Total Protein 6.5 (6.0-8.3) gm/dl Albumin 4.0 (3.4-5.0) gm/dl Globulin 2.5 (2.5-4.0) gm/dl Albumin/Globulin Ratio 1.6 (0.9-2) Lipase 17 (11-82) U/L TSH 2.998 (0.300-4.500) uIu/ml Imaging Data Attestation: I personally reviewed and interpreted this imaging study as follows: My Impression: Chest x-rayno acute infiltrate, failure, seen. Radiologist's Impression: Chest X-Ray 07/12/24 09:03 XR chest 1V portable HISTORY: 59 years-old Female Chest pain, nonspecific COMPARISON: 07/06/2021 TECHNIQUE: AP view of the chest FINDINGS: Cardiac silhouette is mildly enlarged. No pneumothorax, pleural effusion or airspace consolidation. Spondylotic spurring of the spine. IMPRESSION: No acute process. ACT 112: Negative or not required by law. The above report was generated using voice recognition software. It may contain grammatical, syntax or spelling errors. Electronically signed by: Gary Bowser M.D. 07/12/2024 9:39 AM ECG Data Attestation: I personally reviewed and interpreted this ECG as follows: Indication: + tachycardia Rate (beats per minute): 134 Rhythm: + atrial fibrillation (With rapid ventricular response) ECG Intervals/blocks: + Normal QRS and + Normal QT ECG Weaver: + Normal ECG ST segments: + Normal ST segments ECG Findings: no PACs or no PVCs Comparison ECG Date: from (01/08/2019) [facility] Narrative This patient comes in described above. she reports a rapid heart rate she has had a possible history of A-fib. She was placed on a surveillance monitor room C11. EKG was obtained IV access established blood work was ordered as well as a chest x-ray. She was reassessed frequently. EKG does confirm A-fib and she was placed on surveillance monitor and her rate was 134. she was given Lopressor 5 mg IV, she also hydrated 1 L normal saline bolus. She did come down into the 120 range with the Lopressor was given a second dose of Lopressor 5 mg IV. Her magnesium is 1.8 and she was given magnesium 1 g IV. Her troponin was normal chest x-ray shows no acute infiltrate, failure, pneumothorax. She has no significant electrolyte or metabolic abnormalities. Given the fact that she is in rapid A-fib which is new onset , I do think she needs to be admitted/observed. I have consulted Dr. Meeks to see the patient in the ER. He saw the patient and will admit/observe her for these measures Continuous surveillance monitor: Orders placed in EMR for continuous cardiac monitoring: Upon my evaluation patient noted to be rapid A-fib with a rate of 130 Impression & Plan Tachycardia, Atrial fibrillation with RVR, New onset a-fib, Diarrhea, Hypomagnesemia Discharge Plan Visit Data Chief Complaint: Tachycardia Stated Complaint: TACHYCARDIA ED Provider: Ayden Don Discharge Problem: Tachycardia, Atrial fibrillation with RVR, New onset a-fib, Diarrhea, Hypomagnesemia Patient Disposition: Admitted As Inpatient Discharge Instructions Interventions: ED Discharge Assessment Last Done: 07/12/24 11:47 Discharge Problem: Diarrhea Qualifiers: Diarrhea type: unspecified type Qualified Code(s): R19.7 - Diarrhea, unspecified
[2024-07-12] MEDS: METOPROLOL TARTRATE 1 MG/ML VIAL IV STA ×3 (09:19→11:13)
[2024-07-12] MEDS: SODIUM CHLORIDE 0.9% 1,000 ML IV ONE (09:24)
[2024-07-12 09:30] LABS: Basophils # (auto) 0.06 K/uL (0.00-0.20); Basophils % (auto) 1.1 %; Eosinophils # (auto) 0.17 K/uL (0.00-0.50); Hematocrit (blood only) 41.6 % (37.0-47.0); Immature Granulocytes # (auto) 0.02 K/uL (0.01-0.20); Immature Granulocytes % (auto) 0.4 %; Lymphocytes # (auto) 1.75 K/uL (1.20-3.40); Lymphocytes % (auto) 30.9 %; Mean Corpuscular Hemoglobin 29.3 pg (25.0-34.0); Mean Corpuscular Hgb Conc 33.7 g/dL (32.0-36.0); Mean Platelet Volume 9.8 fL (9.4-12.4); Monocytes # (auto) 0.43 K/uL (0.11-0.59); Monocytes % (auto) 7.6 %; Neutrophils # (auto) 3.24 K/uL (1.40-6.50); Platelet Count 256 K/uL (130-400); RDW Coefficient of Variation 12.5 % (11.5-14.5); RDW Standard Deviation 39.8 fL (36.4-46.3); Red Blood Count 4.78 M/uL (4.20-5.40); White Blood Count 5.67 K/ul (4.8-10.8)
--- NOTE | 2024-07-12 09:41 | XRay Report ---
XR chest 1V portable HISTORY: 59 years-old Female Chest pain, nonspecific COMPARISON: 07/06/2021 TECHNIQUE: AP view of the chest FINDINGS: Cardiac silhouette is mildly enlarged. No pneumothorax, pleural effusion or airspace consolidation. S pondylotic spurring of the spine. IMPRESSION: No acute process. ACT 112: Negative or not required by law. The above report was generated using voice recognition software. It may contain grammatical, syntax o r spelling errors. Electronically signed by: Gary Bowser M.D. 07/12/2024 9:39 AM
[2024-07-12 09:50] LABS: Albumin Globulin Ratio 1.6 (0.9-2); BUN Creatinine Ratio 19.4 (10-20); Bilirubin,Total 0.6 mg/dl (0.2-1.0); Calcium 9.2 mg/dl (8.6-10.3); Creatinine Clr Calc Pharmacy 122.3 ml/min; Globulin 2.5 gm/dl (2.5-4.0); Magnesium 1.8 mg/dl (1.7-2.4); Potassium 4.1 mmol/L (3.5-5.1); Total Protein 6.5 gm/dl (6.0-8.3)
[2024-07-12 09:55] LABS: INR 0.9 (0.9-1.1); Partial Thromboplastin Time 26 Seconds (21-31); Prothrombin Time 10.3 Seconds (9.0-12.0)
[2024-07-12 09:56] LABS: Troponin I High Sensitivity 5.7 pg/ml (0-14)
[2024-07-12 10:05] LABS: Thyroid Stimulating Hormone 2.998 uIu/ml (0.300-4.500)
--- NOTE | 2024-07-12 10:28 | History & Physical Report ---
Date of Service July 12, 2024 Assessment & Plan (1) New onset a-fib: Plan: [id number] - recommend anticoagulation as first episode therefore can consider cardioversion in 4 weeks with cardiology follow up Rate control initially with metoprolol, if 5mg x3 not effective will continue on metoprolol tartrate 25mg PO q6h but add diltiazem IV drip (2) Atrial fibrillation with RVR: Plan VTE Prophylaxis - Eliquis Diet - regular Disposition - observation to PCU, can change to admission if diltiazem IV required Admission and Anticipated Discharge Date Admission Date: July 12, 2024 History of Present Illness Chief Complaint: Shortness of breath, tachycardia Primary Care Provider: Nydia Patel MD Reba Sultana is a 59 year old female who presents to the ER with palpitatio ns, tachycardia and shortness of breath on exertion. No known history of atrial fibrillation although she has had intermittent episodes of fast heart rate previously but not lasting this long. She had outpatient hearing therapy director showing this prior fast heart rate was just sinus tachycardia. On this occasion she possibly missed her metoprolol succinate on Monday. On Monday she noticed her heart rate increased and took her evening metoprolol earlier than usual to no effect. She took an addition half pill in the morning on and today as previously directed by her project development engineer given the symptoms were persistent. She denies any chest pain, presyncope, claudication. No prior thyroid issue. No increase in her alcohol intake, she drinks x3 margaritas/wine approximately two times a week. Allergies Allergy/AdvReac Type Severity Reaction Status Date / Time Sulfa (Sulfonamide Allergy Severe FULL BODY Verified 07/12/24 10:01 Antibiotics) RASH nickel Allergy Mild BLISTERLIKE Verified 07/12/24 10:01 RASH FROM JEWELRY peanut Allergy Mild sore throat Verified 07/12/24 10:01 adhesive AdvReac Intermediate Rash Verified 07/12/24 10:01 duloxetine AdvReac Mild Nausea Verified 07/12/24 10:01 Home Medications Medication Instructions Recorded Confirmed Type cholecalciferol (vitamin D3) 50 2,000 unit PO QAM 03/10/21 07/12/24 History mcg (2,000 unit) capsule [id number] carb-vit K 2 tab PO QAM 04/29/21 07/12/24 History 18 mg iron-400 mcg-500 mg tablet (One-A-Day Womens Formula) famotidine 20 mg tablet (Pepcid) 20 mg PO BID PRN Heartburn 10/18/23 07/12/24 History metoprolol succinate 25 mg 25 mg PO HS 10/18/23 07/12/24 History tablet,extended release 24 hr diclofenac sodium 50 mg 50 mg PO DAILY PRN Pain 07/12/24 07/12/24 History tablet,delayed release Past Med/Surg History Problem List (Updated 07/12/24 @ 16:32 by Ayden Don MD) Hypomagnesemia (Acute) Diarrhea (Acute) New onset a-fib (Acute) Atrial fibrillation with RVR (Acute) Tachycardia (Acute) GERD with esophagitis Insulin resistance Metabolic syndrome Primary hypertension Obesity, morbid, BMI 40.0-49.9 Obesity, morbid, BMI 50 or higher Obesity (BMI 30.0-34.9) Hyperlipidemia Nocturnal hypoxemia Insomnia (Chronic) Dietary counseling and surveillance Vitamin D deficiency Morbid obesity (Chronic) Bilateral leg edema Bilateral knee pain (Chronic) Elevated blood pressure reading without diagnosis of hypertension (Acute) Chronic low back pain (Chronic) Laryngopharyngeal reflux (Acute) Sciatica LLE RADICULOPATHY Left trigger finger no issues at present Right knee DJD Osteoarthritis Mild obstructive sleep apnea (Chronic) sleep study suggested mild apnea--no device per pt Arthralgia of multiple sites (Chronic) Medical History Insulin resistance not diabetic per pt Heart rate fast metoprolol for this per pt Hypertension GERD with esophagitis Chronic diarrhea Migraine Morbid obesity with BMI of 45.0-49.9, adult Metabolic syndrome Surgical History History of esophagogastroduodenoscopy (EGD) S/P myomectomy laparoscopic S/P laparoscopic sleeve gastrectomy 09/2021 PSH History of right breast biopsy benign History of dilatation and curettage History of wisdom tooth extraction History of left hip replacement H/O hysterectomy with oophorectomy TLH-LSO History of colonoscopy with polypectomy History of tooth extraction History of tonsillectomy Family History Grandfather (Maternal) Family hx of colon cancer Colorectal cancer Aunt Breast cancer Grandmother (Paternal) Myocardial infarction Mother Atrial fibrillation Hypertension Father Lung cancer Other COPD (chronic obstructive pulmonary disease) No family history of adverse response to anesthesia Denies family history of Ovarian cancer Prostate cancer Social History Smoking Status: Never smoker Second Hand Exposure: Yes; Do You Dip or Chew Tobacco: No; Tobacco Cessation Education Requested by Patient: No Hx Alcohol Use: Yes Alcohol type: wine and hard liquor Hx Substance Use: No Preferred Language: Yemeni Communication Ability: Effective Lead Level Designer Required: No Beliefs That Will Affect Care: None marital status: Current Living Situation: Spouse Current Living Situation Comment: Lives with and 2 kids current occupational status: employed current occupation: resolution specialist at [employer] Other Information That Helps Us Care for You: No Feels Safe at Home: Yes Safety Concerns: Feels Safe At This Time Childhood Exposure to Second-Hand Smoke: Yes Dental Care, Regularly: Yes Physical Activity Frequency: 3-4 Times per Week Seatbelt Use: always Sunscreen Use: Yes Assistive Devices: Glasses Review of Systems Review of Systems: All systems reviewed & are unremarkable except as noted in HPI & below Physical Exam Constitutional: WD/WN, vitals as above Eyes: + anicteric sclerae; normal pupil size ENMT: Mouth: oral mucous membranes not dry Respiratory: normal respiratory effort, lungs clear to auscultation Cardiovascular: Rate/Rhythm: + tachycardic and + irregularly irregular Heart Sounds: no murmur Extremities: normal capillary refill; no calf tenderness and no pedal edema Gastrointestinal (Abdomen): normal bowel sounds, soft, nontender, no hepatosplenomegaly Musculoskeletal: no cyanosis or clubbing, extremities motor strength 5/5 Skin: no rashes, warm and dry Neurologic: moves all extremities and awake; no focal motor deficits and not confused Psychiatric: A+Ox3, euthymic affect Results & Data Results & Data Vital Signs (Past 12 Hours) Vital Signs Temp Pulse Resp BP Pulse Ox O2 Del Method 07/12/24 10:06 137 H 16 98 07/12/24 10:04 127 H 07/12/24 10:01 122/81 07/12/24 09:57 128 H 15 96 07/12/24 09:34 130 H 07/12/24 09:33 131 H 13 98 07/12/24 09:30 124/85 07/12/24 09:21 145 H 16 98 07/12/24 09:19 140 H 07/12/24 09:16 128 H 07/12/24 09:12 139 H 13 07/12/24 09:08 141/102 H 07/12/24 09:03 Room Air 07/12/24 08:53 36.5 C 110 H 20 130/91 98 Room Air Laboratory Results No abnormal labs Diagnostic Findings XR chest 1V portable HISTORY: 59 years-old Female Chest pain, nonspecific COMPARISON: 07/06/2021 TECHNIQUE: AP view of the chest FINDINGS: Cardiac silhouette is mildly enlarged. No pneumothorax, pleural effusion or airspace consolidation. Spondylotic spurring of the spine. IMPRESSION: No acute process. Medications Administered ER Medications Given: Normal saline 1L bolus Magnesium sulfate 1g IV Metoprolol 5mg IV x2 ECG Rate (beats per minute): 134 Rhythm: atrial fibrillation Findings: no acute ischemic change Comparison ECG Date: from Code Status & VTE Plan Code Status Full VTE Prophylaxis Plan VTE Prophylaxis will be ordered: Yes PG Care Time/CCT Total # of Minutes Spent Total Time Spent with Patient: Total time spent is greater than 50% in coordination of care (as documented) at patient's floor/unit and/or counseling patient: Coding Level of Care Code 97154 INT INP/OBS CARE 2/55MIN Diagnoses New onset a-fib I48.91 Atrial fibrillation with RVR I48.91
[2024-07-12] MEDS: MAGNESIUM SULFATE / D5W 1 GM/100 ML BAG IV ONE (10:35)
[2024-07-12] MEDS: METOPROLOL TARTRATE 25 MG TAB PO STA (11:13)
[2024-07-12] MEDS ORDERED: FAMOTIDINE 20 MG TAB PO PRN (11:50)
[2024-07-12] MEDS ORDERED: STAT IV Infusion **Titration per Protocol STA (12:52)
[2024-07-12] MEDS: dilTIAZem HCl 5 MG/ML 5 ML VIAL IV STA (13:15)
[2024-07-12] MEDS: dilTIAZem HCL 125 MG in DEXTROSE 5% 100 ML IV SCH (13:20)
[2024-07-12] MEDS: APIXABAN 5 MG TABLET PO STA (13:26)
[2024-07-12] MEDS: METOPROLOL TARTRATE 25 MG TAB PO SCH (19:39)
[2024-07-12] MEDS: MELATONIN 3 MG TAB PO STA (22:32)
[2024-07-12] MEDS: APIXABAN 5 MG TABLET PO SCH (22:32)
[2024-07-13 07:28] VITALS: BP 135/74; PULSE 70; RESP 18; TEMP 97.7; O2SAT 99
--- NOTE | 2024-07-13 07:48 | Discharge Summary ---
Discharge Summary Date of Service July 13, 2024 Principal Dx & Hospital Course #1 = Principal Diagnosis (1) New onset a-fib: Reba presented in rapid atrial fibrillation, she was treated with diltiazem drip she did convert to normal sinus rhythm last night and has remained in normal sinus rhythm. She did have palpitations with the A-fib but no chest pain or significant dyspnea and she maintained a normal blood pressure. Reba does have a strong family history of atrial fibrillation including her sister who developed it quite young. [id number] - recommend anticoagulation at this time, discussed risks and benefits of anticoagulation with her in detail, she will follow-up with Dr. Black. if she has no recurrence or low A-fib burden she may not require long- term anticoagulation. started on apixaban She already takes metoprolol XL 25 mg, I did increase this to 50 mg. She does sometimes have orthostatic symptoms, if she has an increase in her orthostatic symptoms she knows she can decrease the dose back to 25 mg TTE was completed and report is still pending, I think she is low risk to leave the hospital and I will call her with the echo results tomorrow. TSH was normal I did discuss with her sleep apnea testing, it sounds like she had testing in the past and may have mild sleep apnea but tolerated mask poorly. There may be other options for her I recommended she follow-up with sleep medicine. I also did recommend reducing alcohol intake which she is willing to do. (2) Atrial fibrillation with RVR: Notes For Next Care Provider repeat sleep medicine evaluation if she is willing Medication Changes From Visit Metoprolol succinate increased from 25 to 50 mg started apixaban 5 mg p.o. twice daily Admission HPI Per Admitting Provider Reba Sultana is a 59 year old female who presents to the ER with palpitations, tachycardia and shortness of breath on exertion. No known history of atrial fibrillation although she has had intermittent episodes of fast heart rate previously but not lasting this long. She had outpatient shale processing technician showing this prior fast heart rate was just sinus tachycardia. On this occasion she possibly missed her metoprolol succinate on Monday. On Monday she noticed her heart rate increased and took her evening metoprolol earlier than usual to no effect. She took an addition half pill in the morning on and today as previously directed by her oyster bed worker given the symptoms were persistent. She denies any chest pain, presyncope, claudication. No prior thyroid issue. No increase in her alcohol intake, she drinks x3 margaritas/wine approximately two times a week. Discharge Exam PHYSICAL EXAMINATION Last 24h vital signs reviewed, see documentation in flowsheet General: comfortable appearing, no distress HEENT: Normocephalic, atraumatic, pupils round and equal, sclerae anicteric, no conjunctival injection, moist mucus membranes Lungs: Normal respiratory effort. Clear to auscultation bilaterally. No RRW Heart: Regular rate and rhythm, no murmurs. No JVD Abdomen: Soft, nontender, nondistended. Bowel sounds present. Extremities: Warm, dry, well-perfused. No extremity edema. Neuro: Alert and oriented x 4, face symmetric, moves 4 extremities well Psych: Normal affect and behavior Discharge Plan Discharge Items Patient Disposition: Home - Self-Care Reason For Visit: ATRIAL FIBRILATION WITH RVR Discharge Diagnosis: Atrial fibrillation with rapid ventricular rate Activity: Resume your previous activity Non-emergency contact: Primary Care Provider and Auxiliary Equipment Tender Call non-emergency contact if: you have any medication questions and your symptoms worsen Follow-up/Referrals: Travis Black DO [Physician] - Nydia Patel MD [Primary Care Provider] - Diet: Regular Addtl Attending Provider Instructions: You were treated for atrial fibrillation - a common arrhythmia that causes irregular heart beat You converted back to normal sinus rhythm, but you may go in and out of afib in the future - this is ok as long as the heart rate is controlled and you are not having significant symptoms (like lightheadedness, chest pain, shortness of breath, or low blood pressure). Return to the ER if you have symptoms like these or if your heart rate is >120 for a prolonged amount of time. To control your heart rate we increased your metoprolol. If this is causing too much lightheadedness you can go back down to your previous dose of 25 mg daily. Atrial fibrillation carries increased risk of stroke. We use blood thinner (eliquis) to significantly reduce the risk of stroke. If you do not have more episodes, your oyster bed worker might be able to stop this medication in the future. We discussed the risks and benefits of anticoagulation, including the risks of gastrointestinal bleeding - seek medical attention if you have black/tarry or bloody stool There is also a very small but real risk of intracranial hemorrhage - related to head trauma or bleeding-type stroke, that can be life threatening. Call 911 if you have altered mental status or symptoms of stroke (weakness or numbness of face/arm/leg, trouble speaking or understanding, trouble with walking/balance Diclofenac and other NSAIDS (ibuprofen, naproxen) will increase the risk of GI bleeding in combination with blood thinners. Its safest to avoid NSAIDS. You can use acetaminophen for arthritis pain. Talk to your doctor if this is not effective. A fib can be triggered by alcohol intake - reducing alcohol intake may decrease the chances that you have more afib A fib can also be a symptom of sleep apnea - talk to your doctor about a referral for sleep apnea testing Your Echo report is pending - most likely the Echo will be fairly normal. I will call you with the results. Please schedule follow up with Dr. Black It was a pleasure taking care of you in the hospital, Margo Mijares MD Pending Studies at Discharge: Yes (Echo report) Stand-Alone Forms: My [facility], Smoking Cessation Medications and DC Order Prescriptions: New Eliquis 5 mg Tablet 5 mg PO BID Qty: 60 0RF metoprolol succinate 50 mg Tablet Extended Release 24 Hr 50 mg PO QAM Qty: 30 0RF Continued cholecalciferol (vitamin D3) 50 mcg (2,000 unit) capsule 2,000 unit PO QAM One-A-Day Womens Formula 18 mg iron-400 mcg-500 mg Tablet 2 tab PO QAM famotidine [Pepcid] 20 mg tablet 20 mg PO BID PRN (Reason: Heartburn) Patient Comments: not currently taking 10/18/23 Discontinued diclofenac sodium 50 mg tablet,delayed release (DR/EC) 50 mg PO DAILY PRN (Reason: Pain) metoprolol succinate 25 mg Tablet Extended Release 24 Hr 25 mg PO HS Rx Instructions: Pt takes this medication at night but took 12.5mg by mouth on 07/22/24 in the morning Discharge Orders: Discharge Order (Routine); Ordered 07/13/24 Ordered By: Margo Gentile/Other Patient Handouts: AFib Dc Admission Data Admit Date/Time: 07/12/24 10:23 Attending Provider: Margo Mijares Admit Provider: Eddie Meeks Primary Care Provider: Nydia Patel Other Providers: Eddie Meeks Other Interventions: Discharge Summary Assessment (RN) Last Done: 07/13/24 09:25 Hospital Stay Data Consultations 07/12/24 10:22 ED Decision to Admit Stat Pending Results Patient Have Any Pending Studies at Discharge: Yes (Echo report) Discharge Instructions Given to Patient (Per Discharging Provider) You were treated for atrial fibrillation - a common arrhythmia that causes irregular heart beat You converted back to normal sinus rhythm, but you may go in and out of afib in the future - this is ok as long as the heart rate is controlled and you are not having significant symptoms (like lightheadedness, chest pain, shortness of breath, or low blood pressure). Return to the ER if you have symptoms like these or if your heart rate is >120 for a prolonged amount of time. To control your heart rate we increased your metoprolol. If this is causing too much lightheadedness you can go back down to your previous dose of 25 mg daily. Atrial fibrillation carries increased risk of stroke. We use blood thinner (eliquis) to significantly reduce the risk of stroke. If you do not have more episodes, your oyster bed worker might be able to stop this medication in the future. We discussed the risks and benefits of anticoagulation, including the risks of gastrointestinal bleeding - seek medical attention if you have black/tarry or bloody stool There is also a very small but real risk of intracranial hemorrhage - related to head trauma or bleeding-type stroke, that can be life threatening. Call 911 if you have altered mental status or symptoms of stroke (weakness or numbness of face/arm/leg, trouble speaking or understanding, trouble with walking/balance Diclofenac and other NSAIDS (ibuprofen, naproxen) will increase the risk of GI bleeding in combination with blood thinners. Its safest to avoid NSAIDS. You can use acetaminophen for arthritis pain. Talk to your doctor if this is not effective. A fib can be triggered by alcohol intake - reducing alcohol intake may decrease the chances that you have more afib A fib can also be a symptom of sleep apnea - talk to your doctor about a referral for sleep apnea testing Your Echo report is pending - most likely the Echo will be fairly normal. I will call you with the results. Please schedule follow up with Dr. Black It was a pleasure taking care of you in the hospital, Margo Mijares MD Total Time Total Time Spent Total Time Spent (In Minutes): less than 30 minutes Coding Level of Care Code 70786 IN/OBS DISCH 30 MIN/LESS Diagnoses New onset a-fib I48.91 Atrial fibrillation with RVR I48.91
[2024-07-13] MEDS: METOPROLOL SUCC 50MG EXT REL TAB PO SCH (09:47)
--- NOTE | 2024-07-13 19:20 | Electrocardiogram Report ---
Test Reason : Blood Pressure : */* mmHG Vent. Rate : 72 BPM Atrial Rate : 72 BPM P-R Int : 146 ms QRS Dur : 96 ms QT Int : 414 ms P-R-T Axes : 57 -1 27 degrees QTcB Int : 453 ms Normal sinus rhythm Possible Left atrial enlargement Borderline ECG When compared with ECG of 08-Jan-2019 12:38, No significant change was found Confirmed by Mirella Lazo (Harrison) on 07/13/2024 7:20:18 PM Referred By: REFERRED SELF Confirmed By: Mirella Lazo
--- NOTE | 2024-07-14 17:23 | Electrocardiogram Report ---
Test Reason : Blood Pressure : */* mmHG Vent. Rate : 134 BPM Atrial Rate : * BPM P-R Int : * ms QRS Dur : 88 ms QT Int : 312 ms P-R-T Axes : * -8 69 degrees QTcB Int : 465 ms Atrial fibrillation with rapid ventricular response Minimal voltage criteria for LVH, may be normal variant ( Joaquin product ) Abnormal ECG When compared with ECG of 08-Jan-2019 12:38, Atrial fibrillation has replaced Sinus rhythm Vent. rate has increased by 62 bpm Nonspecific T wave abnormality now evident in Lateral leads Confirmed by Mirella Lazo ([place]) on 07/14/2024 5:23:26 PM Referred By: REFERRED SELF Confirmed By: Mirella Lazo
== END 2024-07-13 10:36 | disposition home or self-care (01) ==
LOC: 2E 08:48 → ED 08:48 → SUATTDRO 10:23 → 2E 11:47